=== PATIENT | female | born 1950 | race Caucasian/White ===

== ENCOUNTER 2018-04-27 07:41 | Outpatient (CLI) | payer MEDICARE, OTHER | END 2018-04-27 07:42 | disposition home or self-care (01) | LOC: BICMAMMO 07:41 | PROVIDERS: ATTEND Obstetrics & Gynecology | DX: Z12.31 Encounter for screening mammogram for malignant neoplasm of breast (principal) | CPT/HCPCS: 77063; 77067 ==

== ENCOUNTER 2018-07-13 05:53 | Day surgery (SDC) | payer MEDICARE, OTHER ==
[2018-07-12 10:24] VITALS: BMI 48.9
--- NOTE | 2018-07-13 08:14 | OP ---
DATE OF PROCEDURE: 07/13/2018 SURGEON: Dr. Sedrick Oscar PREOPERATIVE DIAGNOSES: Gastroesophageal reflux, history of adenomatous colon polyps. PROCEDURE: After informed consent was obtained, the patient placed in left lateral decubitus positio n. Anesthesia administered per the Anesthesia Department. Forward-viewing endoscope was inserted in to esophagus under direct visualization with ease and passed to the second portion of the duodenum wi th ease. Second portion of duodenum and duodenal bulb were normal. The pylorus, antrum, body, fundu s, and cardia were normal. Retroflexion in the stomach was normal. Esophagus was normal throughout. ASSESSMENT: Normal esophagogastroduodenoscopy. RECOMMENDATIONS: 1. Continue antireflux therapy. 2. Proceed with colonoscopy. PROCEDURE: After informed consent was obtained, the patient placed in left lateral decubitus positio n. Anesthesia administered per the Anesthesia Department. Forward-viewing endoscope was inserted in to the rectum after perianal inspection and rectal exam were normal. This passed to the cecum with e ase. The full cecal cap could not be visualized secondary to looping, but most of the cecal cap was visualized and the prep was excellent. The ascending, transverse, descending, sigmoid, and rectum we re normal. Retroflexion in rectum was normal. ASSESSMENT: Normal colonoscopy. RECOMMENDATIONS: Repeat colonoscopy in 5 years.
== END 2018-07-13 08:36 | disposition home or self-care (01) ==
LOC: SDC 05:53
PROVIDERS: ATTEND Internal Medicine Gastroenterology
PROC: 0DJ08ZZ Inspection of Upper Intestinal Tract, Via Natural or Artificial Opening Endoscopic (ICD-10-PCS; principal; 2018-07-13)
PROC: 0DJD8ZZ Inspection of Lower Intestinal Tract, Via Natural or Artificial Opening Endoscopic (ICD-10-PCS; 2018-07-13)
DX: Z12.11 Encounter for screening for malignant neoplasm of colon (principal); K21.9 Gastro-esophageal reflux disease without esophagitis; E66.9 Obesity, unspecified; Z68.42 Body mass index [BMI] 45.0-49.9, adult; Z86.010 Personal history of colon polyps; Z88.0 Allergy status to penicillin; Z88.1 Allergy status to other antibiotic agents; Z88.5 Allergy status to narcotic agent; Z79.1 Long term (current) use of non-steroidal anti-inflammatories (NSAID); Z79.82 Long term (current) use of aspirin; Z79.84 Long term (current) use of oral hypoglycemic drugs; Z79.899 Other long term (current) drug therapy
CPT/HCPCS: 43235; G0105

== ENCOUNTER 2019-02-18 09:10 | Outpatient (CLI) | payer MEDICARE, OTHER ==
--- NOTE | 2019-02-18 09:23 | RAD ---
FRadiograph chest 2 views: HISTORY: 68-year-old female with dyspnea FINDINGS: No pleural effusion, pneumothorax, consolidation, or pulmonary edema. Cardiac size at upper limits of normal. IMPRESSION: No acute pulmonary findings
== END 2019-02-18 09:11 | disposition home or self-care (01) ==
LOC: RAD 09:10
PROVIDERS: ATTEND Internal Medicine Critical Care Medicine
DX: R06.00 Dyspnea, unspecified (principal)
CPT/HCPCS: 71046

== ENCOUNTER 2019-04-29 07:39 | Outpatient (CLI) | payer MEDICARE, OTHER ==
--- NOTE | 2019-04-29 08:12 | MMO ---
Bilateral MAMMO Bilat Screen [facility]. CLINICAL HISTORY: Patient is 68 years old and is seen for screening. The patient has no family history of breast cancer. The patient has no personal history of cancer. The patient has a history of right Excisional Biopsy more than 10 years ago - benign. VIEWS: The views performed were: bilateral craniocaudal with tomosynthesis and bilateral mediolateral oblique with tomosynthesis. FILMS COMPARED: The present examination has been compared to prior imaging studies performed at [facility] on 12/10/2015, 02/01/2017 and 04/27/2018, and at [facility] on 12/01/2014. MAMMOGRAM FINDINGS: There are scattered fibroglandular densities. There are stable benign appearing calcifications seen in both breasts. There are no suspicious masses, suspicious calcifications, or new areas of architectural distortion. IMPRESSION: THERE IS NO MAMMOGRAPHIC EVIDENCE OF MALIGNANCY. A ROUTINE FOLLOW-UP MAMMOGRAM IN 1 YEAR IS RECOMMENDED. THE RESULTS OF THIS EXAM WERE SENT TO THE PATIENT. ACR BI-RADS Category 2 - Benign finding MAMMOGRAPHY NOTE: 1. A negative mammogram report should not delay a biopsy if a dominant of clinically suspicious mass is present. 2. Approximately 10% to 15% of breast cancers are not detected by mammography. 3. Adenosis and dense breasts may obscure an underlying neoplasm.
== END 2019-04-29 07:40 | disposition home or self-care (01) ==
LOC: BICMAMMO 07:39
PROVIDERS: ATTEND Obstetrics & Gynecology
DX: Z12.31 Encounter for screening mammogram for malignant neoplasm of breast (principal); Z91.89 Other specified personal risk factors, not elsewhere classified
CPT/HCPCS: 77063; 77067

== ENCOUNTER 2020-05-05 07:56 | Outpatient (CLI) | payer MEDICARE, OTHER ==
--- NOTE | 2020-05-05 08:31 | MMO ---
Bilateral MAMMO Bilat Screen [facility]. CLINICAL HISTORY: Patient is 69 years old and is seen for screening. The patient has no family history of breast cancer. The patient has no personal history of cancer. The patient has a history of right Excisional Biopsy more than 10 years ago - benign. VIEWS: The views performed were: bilateral mediolateral oblique with tomosynthesis; bilateral craniocaudal with tomosynthesis; left mediolateral oblique; and right craniocaudal. FILMS COMPARED: The present examination has been compared to prior imaging studies performed at [facility] on 12/10/2015, 02/01/2017, 04/27/2018 and 04/29/2019. This study has been interpreted with the assistance of computer-aided detection. MAMMOGRAM FINDINGS: There are scattered fibroglandular densities. There are benign appearing calcifications seen in both breasts. There are no suspicious masses, suspicious calcifications, or new areas of architectural distortion. IMPRESSION: THERE IS NO MAMMOGRAPHIC EVIDENCE OF MALIGNANCY. A ROUTINE FOLLOW-UP MAMMOGRAM IN 1 YEAR IS RECOMMENDED. THE RESULTS OF THIS EXAM WERE SENT TO THE PATIENT. ACR BI-RADS Category 2 - Benign finding MAMMOGRAPHY NOTE: 1. A negative mammogram report should not delay a biopsy if a dominant of clinically suspicious mass is present. 2. Approximately 10% to 15% of breast cancers are not detected by mammography. 3. Adenosis and dense breasts may obscure an underlying neoplasm. Reported by: SHAUNA TANNER MD Electonically Signed: [id number]
== END 2020-05-05 07:57 | disposition home or self-care (01) ==
LOC: BICMAMMO 07:56
PROVIDERS: ATTEND Family Medicine
DX: Z12.31 Encounter for screening mammogram for malignant neoplasm of breast (principal); Z91.89 Other specified personal risk factors, not elsewhere classified
CPT/HCPCS: 77063; 77067

== ENCOUNTER 2022-03-22 09:31 | Inpatient (IN) | payer MEDICARE, OTHER ==
[2022-03-22 10:17] LABS: INR-International Normal Ratio 1.2; Prothrombin Time 15.1 sec (12.0-14.7)
[2022-03-22 10:20] LABS: #Basophils 0.1 thou/uL (0.0-0.2); #Eosinphils 0.2 thou/uL (0.0-0.7); #Lymphocytes 2.1 thou/uL (1.20-3.40); #Monocytes 0.4 thou/uL (0.11-0.59); #Neutrophils 4.4 thou/uL (1.40-6.50); %Basophils 0.9 % (0.0-1.0); %Eosinophils 2.8 % (0.0-10.0); %Lymphocytes 29.6 % (21.0-51.0); %Monocytes 5.7 % (0.0-10.0); %Neutrophils 61.1 % (42.0-75.0); Hemoglobin 5.8 g/dL (12.0-16.0); Mean Corpuscular HGB CONC 31.7 g/dL (32.0-36.0); Mean Corpuscular Hemoglobin 32.2 pg (27.0-31.0); Mean Platelet Volume 7.2 fL (7.4-10.4); Platelet Count 243 thou/uL (130-400); White Blood Cell (WBC) Count 7.2 thou/uL (4.8-10.8)
[2022-03-22 10:33] LABS: ALT (SGPT) 16 U/L (8-55); AST (SGOT) 20 U/L (5-34); Albumin 3.8 g/dL (3.4-4.8); Alkaline Phosphatase 87 U/L (40-110); Anion Gap 15 mmol/L (10-20); BUN (Urea Nitrogen) 45 mg/dL (9.8-20.1); Bilirubin, Total 0.8 mg/dL (0.2-1.2); Calc. Creatinine Clearance 0 mL/min (70-130); Calcium 9.4 mg/dL (7.8-10.44); Carbon Dioxide 23 mmol/L (23-31); Chloride 104 mmol/L (98-107); Globulin 3.1 g/dL (2.4-3.5); Glucose 126 mg/dL (83-110); Lipase 64 U/L (8-78); Potassium 4.9 mmol/L (3.5-5.1); Protein, Total 6.9 g/dL (5.8-8.1); Sodium 137 mmol/L (136-145)
[2022-03-22 11:38] LABS: Polychromasia SLIGHT = 2-3 cells (100X) (0-2/hpf); Tear Drops SLIGHT = 2-5 cells (100X) (0-1/hpf)
[2022-03-22 11:39] LABS: Platelet Morphology Comment Appears Adequate
[2022-03-22] MEDS ORDERED: Acetaminophen 325 MG TAB PO PRN (11:51)
[2022-03-22] MEDS ORDERED: Bisacodyl 5 MG TAB PO PRN (11:51)
[2022-03-22] MEDS ORDERED: Senokot S 8.6-50 MG TAB PO PRN (11:51)
[2022-03-22] MEDS ORDERED: Morphine 2 MG/ML VIAL SLOW IVP PRN (11:55)
[2022-03-22] MEDS ORDERED: HYDROcodone/Acetaminophen 5/325 mg Tablet PO PRN (12:32)
[2022-03-22] MEDS ORDERED: Dextrose 50% Abboject 50 ML SYRINGE SLOW IVP PRN (12:35)
[2022-03-22] MEDS ORDERED: HumaLOG 300 UNITS/3 ML VIAL SC PRN (12:35)
[2022-03-22] MEDS ORDERED: Dextrose 5% in Water 1,000 ML IV PRN (12:35)
[2022-03-22 12:52] LABS: Reticulocyte Count 8.6 % (0.5-1.5)
[2022-03-22 13:13] LABS: Troponin I Less than 0.010 ng/mL (< 0.028)
[2022-03-22] MEDS ORDERED: Furosemide 40 MG/4 ML VIAL SLOW IVP SCH ×3 (15:00→23:59)
[2022-03-22 16:09] VITALS: BMI 53.2
[2022-03-22 17:07] LABS: Troponin I Less than 0.010 ng/mL (< 0.028)
[2022-03-22] MEDS: Rosuvastatin 20 MG TAB PO SCH (21:04)
[2022-03-22] MEDS: Pantoprazole 40 MG VIAL IVP SCH (21:05)
[2022-03-22 22:36] LABS: #Basophils 0.1 thou/uL (0.0-0.2); #Eosinphils 0.4 thou/uL (0.0-0.7); #Monocytes 1.1 thou/uL (0.11-0.59); #Neutrophils 4.2 thou/uL (1.40-6.50); %Basophils 0.7 % (0.0-1.0); %Eosinophils 4.3 % (0.0-10.0); %Lymphocytes 34.7 % (21.0-51.0); %Monocytes 12.3 % (0.0-10.0); %Neutrophils 47.9 % (42.0-75.0); Hemoglobin 6.4 g/dL (12.0-16.0); Mean Corpuscular Hemoglobin 31.7 pg (27.0-31.0); Mean Corpuscular Volume 99.1 fL (78.0-98.0); Mean Platelet Volume 6.7 fL (7.4-10.4); Platelet Count 245 thou/uL (130-400); RBC Distribution Width 15.6 % (11.5-14.5); Red Blood Cell (RBC) Count 2.01 mill/uL (4.20-5.40); White Blood Cell (WBC) Count 8.7 thou/uL (4.8-10.8)
[2022-03-23 00:50] LABS: SARS-CoV-2 PCR by NAA Not Detected (NotDetected)
[2022-03-23 05:01] LABS: #Basophils 0.1 thou/uL (0.0-0.2); #Eosinphils 0.3 thou/uL (0.0-0.7); #Lymphocytes 2.9 thou/uL (1.20-3.40); #Neutrophils 4.7 thou/uL (1.40-6.50); %Basophils 0.6 % (0.0-1.0); %Lymphocytes 32.4 % (21.0-51.0); %Monocytes 11.4 % (0.0-10.0); %Neutrophils 52.5 % (42.0-75.0); Hemoglobin 7.9 g/dL (12.0-16.0); Mean Corpuscular HGB CONC 32.4 g/dL (32.0-36.0); Mean Corpuscular Volume 95.9 fL (78.0-98.0); Mean Platelet Volume 6.5 fL (7.4-10.4); Platelet Count 268 thou/uL (130-400); Red Blood Cell (RBC) Count 2.53 mill/uL (4.20-5.40); White Blood Cell (WBC) Count 8.9 thou/uL (4.8-10.8)
[2022-03-23 05:31] LABS: ALT (SGPT) 15 U/L (8-55); AST (SGOT) 21 U/L (5-34); Albumin 4.2 g/dL (3.4-4.8); Alkaline Phosphatase 96 U/L (40-110); Anion Gap 17 mmol/L (10-20); BUN (Urea Nitrogen) 40 mg/dL (9.8-20.1); Bilirubin, Total 1.9 mg/dL (0.2-1.2); Calc. Creatinine Clearance 75 mL/min (70-130); Calcium 9.8 mg/dL (7.8-10.44); Carbon Dioxide 26 mmol/L (23-31); Chloride 104 mmol/L (98-107); Globulin 3.2 g/dL (2.4-3.5); Glucose 108 mg/dL (83-110); Magnesium 2.2 mg/dL (1.6-2.6); Potassium 4.9 mmol/L (3.5-5.1); Protein, Total 7.4 g/dL (5.8-8.1); Sodium 142 mmol/L (136-145)
[2022-03-23] MEDS ORDERED: Electrolyte Replacement Protocol 1 EACH FS PRN (08:45)
[2022-03-23 08:52] LABS: Reticulocyte Count 6.6 % (0.5-1.5)
[2022-03-23] MEDS: Folic Acid 1 MG TAB PO SCH (08:56)
[2022-03-23] MEDS: Cyanocobalamin (Vitamin B-12) 1,000 MCG TAB PO SCH (08:56)
[2022-03-23] MEDS: Pantoprazole 40 MG VIAL IVP SCH ×2 (08:57→20:58)
[2022-03-23] MEDS: Furosemide 40 MG/4 ML VIAL SLOW IVP SCH (08:57)
[2022-03-23] MEDS ORDERED: GoLYTELY 4,000 ml Bottle PO SCH (17:00)
[2022-03-23] MEDS ORDERED: Potassium Chloride 20 MEQ TAB PO SCH (17:30)
[2022-03-23] MEDS: Rosuvastatin 20 MG TAB PO SCH (20:58)
[2022-03-24 05:37] LABS: ALT (SGPT) 18 U/L (8-55); AST (SGOT) 27 U/L (5-34); Albumin 3.8 g/dL (3.4-4.8); Alkaline Phosphatase 88 U/L (40-110); Anion Gap 11 mmol/L (10-20); BUN (Urea Nitrogen) 32 mg/dL (9.8-20.1); Bilirubin, Total 1.7 mg/dL (0.2-1.2); Calc. Creatinine Clearance 89 mL/min (70-130); Calcium 9.7 mg/dL (7.8-10.44); Carbon Dioxide 32 mmol/L (23-31); Chloride 104 mmol/L (98-107); Globulin 3.2 g/dL (2.4-3.5); Glucose 108 mg/dL (83-110); Magnesium 1.8 mg/dL (1.6-2.6); Phosphorus 3.6 mg/dL (2.3-4.7); Potassium 5.1 mmol/L (3.5-5.1); Sodium 142 mmol/L (136-145)
[2022-03-24 05:55] LABS: #Eosinphils 0.2 thou/uL (0.0-0.7); #Lymphocytes 2.5 thou/uL (1.20-3.40); #Monocytes 0.9 thou/uL (0.11-0.59); #Neutrophils 4.3 thou/uL (1.40-6.50); %Basophils 0.6 % (0.0-1.0); %Eosinophils 2.4 % (0.0-10.0); %Lymphocytes 31.2 % (21.0-51.0); %Monocytes 11.2 % (0.0-10.0); %Neutrophils 54.6 % (42.0-75.0); Hemoglobin 7.8 g/dL (12.0-16.0); Mean Corpuscular HGB CONC 34.5 g/dL (32.0-36.0); Mean Corpuscular Hemoglobin 33.4 pg (27.0-31.0); Mean Corpuscular Volume 96.9 fL (78.0-98.0); Mean Platelet Volume 6.8 fL (7.4-10.4); Platelet Count 255 thou/uL (130-400); RBC Distribution Width 16.5 % (11.5-14.5); Red Blood Cell (RBC) Count 2.33 mill/uL (4.20-5.40); White Blood Cell (WBC) Count 7.9 thou/uL (4.8-10.8)
[2022-03-24] MEDS ORDERED: Magnesium 2 GM/50 ML(in water) 2 GM in Premix Bag 1 BAG IVPB SCH (06:15)
[2022-03-24] MEDS ORDERED: Ketamine 50 MG/ML (10ML VIAL) ONE (09:41)
[2022-03-24] MEDS ORDERED: PROPOFOL 200 MG/20 ML VIAL ONE (09:55)
[2022-03-24] MEDS: Cyanocobalamin (Vitamin B-12) 1,000 MCG TAB PO SCH (10:41)
[2022-03-24] MEDS: Pantoprazole 40 MG VIAL IVP SCH (10:42)
[2022-03-24] MEDS: Furosemide 40 MG/4 ML VIAL SLOW IVP SCH (10:42)
[2022-03-24] MEDS: Folic Acid 1 MG TAB PO SCH (10:42)
[2022-03-24] MEDS ORDERED: Iron, Sodium Ferric Gluconate 250 MG in Sodium Chloride 0.9% 250 ML 250 ML IVPB SCH (14:30)
[2022-03-24] MEDS ORDERED: Furosemide 40 MG/4 ML VIAL SLOW IVP SCH (17:15)
[2022-03-24] MEDS: Rosuvastatin 20 MG TAB PO SCH (20:59)
[2022-03-24] MEDS: Nystatin Powder 15 GM BOT TOP SCH (21:49)
[2022-03-25 04:33] LABS: #Basophils 0.1 thou/uL (0.0-0.2); #Eosinphils 0.2 thou/uL (0.0-0.7); #Lymphocytes 2.8 thou/uL (1.20-3.40); #Monocytes 0.8 thou/uL (0.11-0.59); #Neutrophils 3.8 thou/uL (1.40-6.50); %Basophils 0.7 % (0.0-1.0); %Eosinophils 2.2 % (0.0-10.0); %Lymphocytes 36.9 % (21.0-51.0); %Monocytes 10.2 % (0.0-10.0); Anion Gap 17 mmol/L (10-20); BUN (Urea Nitrogen) 23 mg/dL (9.8-20.1); Calc. Creatinine Clearance 96 mL/min (70-130); Calcium 9.4 mg/dL (7.8-10.44); Carbon Dioxide 24 mmol/L (23-31); Chloride 104 mmol/L (98-107); Glucose 97 mg/dL (83-110); Hemoglobin 8.6 g/dL (12.0-16.0); Magnesium 1.8 mg/dL (1.6-2.6); Mean Corpuscular HGB CONC 31.8 g/dL (32.0-36.0); Mean Corpuscular Hemoglobin 30.4 pg (27.0-31.0); Mean Corpuscular Volume 95.5 fL (78.0-98.0); Mean Platelet Volume 8.1 fL (7.4-10.4); Platelet Count 203 thou/uL (130-400); Potassium 4.7 mmol/L (3.5-5.1); RBC Distribution Width 16.4 % (11.5-14.5); Red Blood Cell (RBC) Count 2.83 mill/uL (4.20-5.40); Sodium 140 mmol/L (136-145); White Blood Cell (WBC) Count 7.7 thou/uL (4.8-10.8)
[2022-03-25] MEDS ORDERED: Magnesium 2 GM/50 ML(in water) 2 GM in Premix Bag 1 BAG IVPB SCH (06:30)
[2022-03-25] MEDS: Nystatin Powder 15 GM BOT TOP SCH (08:33)
[2022-03-25] MEDS: Folic Acid 1 MG TAB PO SCH (08:33)
[2022-03-25] MEDS: Cyanocobalamin (Vitamin B-12) 1,000 MCG TAB PO SCH (08:33)
[2022-03-25] MEDS ORDERED: Iron, Sodium Ferric Gluconate 250 MG in Sodium Chloride 0.9% 250 ML 250 ML IVPB SCH (09:00)
[2022-03-25] MEDS: Furosemide 40 MG/4 ML VIAL SLOW IVP SCH (11:02)
[2022-03-25] MEDS ORDERED: Furosemide 40 MG/4 ML VIAL SLOW IVP SCH (13:00)
[2022-03-25] MEDS ORDERED: Potassium Chloride 20 MEQ TAB PO SCH (13:00)
[2022-03-25 17:23] VITALS: BP 150/66; TEMP 96.9
== END 2022-03-25 17:03 | disposition home or self-care (01) | DRG 811 ==
LOC: ERS 09:31 → SUATTDRO 09:31 → 2NO 15:19
PROVIDERS: ADMIT Internal Medicine; ATTEND Internal Medicine
PROC: 30233N1 Transfusion of Nonautologous Red Blood Cells into Peripheral Vein, Percutaneous Approach (ICD-10-PCS; principal; 2022-03-22)
PROC: 0DJ08ZZ Inspection of Upper Intestinal Tract, Via Natural or Artificial Opening Endoscopic (ICD-10-PCS; 2022-03-24)
PROC: 0DBL8ZZ Excision of Transverse Colon, Via Natural or Artificial Opening Endoscopic (ICD-10-PCS; 2022-03-24)
DX: D50.9 Iron deficiency anemia, unspecified (principal); J96.01 Acute respiratory failure with hypoxia; I50.33 Acute on chronic diastolic (congestive) heart failure; I13.0 Hypertensive heart and chronic kidney disease with heart failure and stage 1 through stage 4 chronic kidney disease, or unspecified chronic kidney disease; Z68.43 Body mass index [BMI] 50.0-59.9, adult; Z20.822 Contact with and (suspected) exposure to COVID-19; M19.90 Unspecified osteoarthritis, unspecified site; K21.9 Gastro-esophageal reflux disease without esophagitis; E11.22 Type 2 diabetes mellitus with diabetic chronic kidney disease; E87.70 Fluid overload, unspecified; D50.0 Iron deficiency anemia secondary to blood loss (chronic); E66.01 Morbid (severe) obesity due to excess calories; E78.00 Pure hypercholesterolemia, unspecified; K31.819 Angiodysplasia of stomach and duodenum without bleeding; E83.42 Hypomagnesemia; E87.6 Hypokalemia; N18.31 Chronic kidney disease, stage 3a; Z88.0 Allergy status to penicillin; Z88.5 Allergy status to narcotic agent; Z88.1 Allergy status to other antibiotic agents; Z88.8 Allergy status to other drugs, medicaments and biological substances; Z98.51 Tubal ligation status; Z87.891 Personal history of nicotine dependence
CPT/HCPCS: 36415; 36416; 36430; 71045; 71046; 80048; 80053; 82274; 82607; 82728; 82746; 83540; 83690; 83735; 83880; 84100; 84484; 85025; 85046; 85610; 85730; 86850; 86900; 86901; 88305; 93005; 93306; 93970; 94760; C9113; J1940; J2704; J2916; J3475; J7050; P9016; U0003; U0005

== ENCOUNTER 2022-05-19 11:33 | Observation (INO) | payer MEDICARE, OTHER ==
[2022-05-19 12:40] LABS: #Basophils 0.1 thou/uL (0.0-0.2); #Eosinphils 0.2 thou/uL (0.0-0.7); #Lymphocytes 2.2 thou/uL (1.20-3.40); #Monocytes 0.8 thou/uL (0.11-0.59); #Neutrophils 3.5 thou/uL (1.40-6.50); %Basophils 0.8 % (0.0-1.0); %Lymphocytes 32.2 % (21.0-51.0); %Monocytes 12.1 % (0.0-10.0); Hemoglobin 7.6 g/dL (12.0-16.0); Mean Corpuscular HGB CONC 32.2 g/dL (32.0-36.0); Mean Corpuscular Hemoglobin 33.5 pg (27.0-31.0); Mean Platelet Volume 6.7 fL (7.4-10.4); Platelet Count 248 thou/uL (130-400); RBC Distribution Width 16.4 % (11.5-14.5); Red Blood Cell (RBC) Count 2.27 mill/uL (4.20-5.40); White Blood Cell (WBC) Count 6.8 thou/uL (4.8-10.8)
[2022-05-19 13:02] LABS: ALT (SGPT) 25 U/L (8-55); AST (SGOT) 38 U/L (5-34); Albumin 3.7 g/dL (3.4-4.8); Alkaline Phosphatase 139 U/L (40-110); Anion Gap 16 mmol/L (10-20); BUN (Urea Nitrogen) 34 mg/dL (9.8-20.1); Bilirubin, Total 0.7 mg/dL (0.2-1.2); Calc. Creatinine Clearance 0 mL/min (70-130); Calcium 9.4 mg/dL (7.8-10.44); Carbon Dioxide 23 mmol/L (23-31); Chloride 107 mmol/L (98-107); Estimated GFR 40; Globulin 3.3 g/dL (2.4-3.5); Glucose 130 mg/dL (83-110); Potassium 6.1 mmol/L (3.5-5.1); Sodium 140 mmol/L (136-145)
[2022-05-19] MEDS ORDERED: Sodium Bicarb 50 MEQ/50 ML Abboject 8.4% SYRINGE ONE (13:35)
[2022-05-19] MEDS ORDERED: CALCIUM GLUC 1GM/NS 50ML BAG ONE (13:35)
[2022-05-19] MEDS ORDERED: Furosemide 40 MG/4 ML VIAL ONE (13:35)
[2022-05-19] MEDS ORDERED: Acetaminophen 500 MG TAB ONE (15:07)
[2022-05-19] MEDS ORDERED: HumaLOG 300 UNITS/3 ML VIAL SC PRN ×2 (17:01)
[2022-05-19] MEDS ORDERED: Dextrose 50% Abboject 50 ML SYRINGE SLOW IVP PRN (17:01)
[2022-05-19] MEDS ORDERED: Dextrose 5% in Water 1,000 ML IV PRN (17:01)
[2022-05-19 17:32] LABS: Reticulocyte Count 8.4 % (0.5-1.5)
[2022-05-19 17:52] LABS: Iron 60 ug/dL (50-170); Iron Binding Capacity, Total 458 mcg/dL (265-497)
[2022-05-19 18:18] LABS: Ferritin 25.51 ng/mL (10-291)
[2022-05-19 18:55] VITALS: BMI 50.6
[2022-05-19 18:55] LABS: SARS-CoV-2 NAA Rapid Test Not Detected (NotDetected)
[2022-05-19 19:48] LABS: Hemoglobin 8.4 g/dL (12.0-16.0)
[2022-05-19 20:13] LABS: Anion Gap 19 mmol/L (10-20); BUN (Urea Nitrogen) 31 mg/dL (9.8-20.1); Calc. Creatinine Clearance 73 mL/min (70-130); Calcium 10.7 mg/dL (7.8-10.44); Carbon Dioxide 22 mmol/L (23-31); Chloride 105 mmol/L (98-107); Estimated GFR 37; Glucose 162 mg/dL (83-110); Potassium 5.2 mmol/L (3.5-5.1)
[2022-05-19 21:41] LABS: Sodium 141 mmol/L (136-145)
[2022-05-19] MEDS: Acetaminophen 325 MG TAB PO PRN (21:43)
[2022-05-20] MEDS ORDERED: Fluticasone Propionate Nasal Spray 16 gm Bottle NASAL PRN (00:04)
[2022-05-20] MEDS ORDERED: hydrALAZINE 20 MG/ML VIAL SLOW IVP PRN (00:10)
[2022-05-20] MEDS ORDERED: Mag-Al Plus 1200 MG/1200 MG/120 MG/30 ML UDCUP PO SCH (02:55)
[2022-05-20 03:33] LABS: #Basophils 0.1 thou/uL (0.0-0.2); #Eosinphils 0.1 thou/uL (0.0-0.7); #Lymphocytes 2.5 thou/uL (1.20-3.40); #Neutrophils 4.1 thou/uL (1.40-6.50); %Basophils 0.8 % (0.0-1.0); %Eosinophils 1.9 % (0.0-10.0); %Lymphocytes 31.9 % (21.0-51.0); %Neutrophils 52.5 % (42.0-75.0); Hemoglobin 8.4 g/dL (12.0-16.0); Mean Corpuscular Hemoglobin 34.2 pg (27.0-31.0); Mean Platelet Volume 6.5 fL (7.4-10.4); Platelet Count 249 thou/uL (130-400); RBC Distribution Width 16.1 % (11.5-14.5); Red Blood Cell (RBC) Count 2.45 mill/uL (4.20-5.40); White Blood Cell (WBC) Count 7.8 thou/uL (4.8-10.8)
[2022-05-20 03:53] LABS: Anion Gap 17 mmol/L (10-20); BUN (Urea Nitrogen) 30 mg/dL (9.8-20.1); Calc. Creatinine Clearance 77 mL/min (70-130); Calcium 10.5 mg/dL (7.8-10.44); Carbon Dioxide 23 mmol/L (23-31); Chloride 105 mmol/L (98-107); Estimated GFR 40; Glucose 116 mg/dL (83-110); Potassium 4.9 mmol/L (3.5-5.1); Sodium 140 mmol/L (136-145)
[2022-05-20 03:59] LABS: Troponin I 0.015 ng/mL (< 0.028)
[2022-05-20] MEDS ORDERED: Ferrous Sulfate 325 MG TAB PO SCH (08:00)
[2022-05-20] MEDS ORDERED: Ezetimibe 10 MG TAB PO SCH (09:00)
[2022-05-20] MEDS ORDERED: Loratadine 10 MG TAB PO SCH (09:00)
[2022-05-20] MEDS ORDERED: Brimonidine Tartrate 0.2% Ophth Soln 5 ml Bottle EA EYE SCH (09:00)
[2022-05-20] MEDS ORDERED: Losartan 25 MG TAB PO SCH (09:00)
[2022-05-20] MEDS: Acetaminophen 325 MG TAB PO PRN (09:56)
[2022-05-20] MEDS ORDERED: Ondansetron PF 4 MG/2 ML Vial IVP PRN (10:59)
[2022-05-20 11:48] VITALS: BP 134/62; TEMP 98.2
[2022-05-20] MEDS ORDERED: traMADol HCl 50 MG TAB PO SCH (14:15)
[2022-05-20] MEDS ORDERED: Lidocaine 5% Patch TD SCH (14:15)
[2022-05-20] MEDS ORDERED: Gabapentin 300 MG CAP PO SCH (14:15)
[2022-05-20] MEDS ORDERED: Rosuvastatin 20 MG TAB PO SCH (21:00)
[2022-05-21] MEDS ORDERED: Transdermal Patch Removal TOP SCH (02:15)
== END 2022-05-20 16:45 | disposition home or self-care (01) ==
LOC: ERS 11:33 → ERHOLD 15:17 → 2SW 18:29
PROVIDERS: ADMIT Family Medicine; ATTEND Family Medicine
DX: I13.0 Hypertensive heart and chronic kidney disease with heart failure and stage 1 through stage 4 chronic kidney disease, or unspecified chronic kidney disease (principal); E11.22 Type 2 diabetes mellitus with diabetic chronic kidney disease; N18.30 Chronic kidney disease, stage 3 unspecified; I50.30 Unspecified diastolic (congestive) heart failure; D63.1 Anemia in chronic kidney disease; E87.5 Hyperkalemia; K21.9 Gastro-esophageal reflux disease without esophagitis; R60.0 Localized edema; M54.30 Sciatica, unspecified side; E66.01 Morbid (severe) obesity due to excess calories; Z68.43 Body mass index [BMI] 50.0-59.9, adult; Z79.82 Long term (current) use of aspirin; Z79.84 Long term (current) use of oral hypoglycemic drugs; Z79.899 Other long term (current) drug therapy; Z88.0 Allergy status to penicillin; Z88.1 Allergy status to other antibiotic agents; Z88.5 Allergy status to narcotic agent; Z20.822 Contact with and (suspected) exposure to COVID-19
CPT/HCPCS: 71045; 80048 ×2; 80053; 82607; 82728; 82746; 82962 ×2; 83540; 83550; 83880; 84484 ×2; 85014; 85018; 85025 ×2; 85046; 93005 ×2; J0610; U0002; 36415; 36416; 82274; 93010; 96374; G0378; J1940; J2405

== ENCOUNTER 2022-09-27 10:59 | Inpatient (IN) | payer MEDICARE, OTHER ==
[~2022-09-27 10:59] MED LIST: Iopamidol-370 76% 500 ML 1 ML ONE
[2022-09-27 12:24] LABS: #Lymphocytes 1.6 thou/uL (1.20-3.40); #Monocytes 1.4 thou/uL (0.11-0.59); %Basophils 0.2 % (0.0-1.0); %Eosinophils 0.3 % (0.0-10.0); %Monocytes 10.9 % (0.0-10.0); %Neutrophils 76.6 % (42.0-75.0); Hemoglobin 11.7 g/dL (12.0-16.0); Mean Corpuscular HGB CONC 32.5 g/dL (32.0-36.0); Mean Corpuscular Hemoglobin 31.3 pg (27.0-31.0); Mean Corpuscular Volume 96.5 fl (78.0-98.0); Mean Platelet Volume 7.3 fL (7.4-10.4); Platelet Count 190 10x3/uL (130-400); RBC Distribution Width 15.8 % (11.5-14.5); Red Blood Cell (RBC) Count 3.73 mill/uL (4.20-5.40)
[2022-09-27 12:48] LABS: ALT (SGPT) 20 U/L (8-55); AST (SGOT) 17 U/L (5-34); Albumin 3.6 g/dL (3.4-4.8); Alkaline Phosphatase 169 U/L (40-110); Anion Gap 15 mmol/L (10-20); BUN (Urea Nitrogen) 31 mg/dL (9.8-20.1); Bilirubin, Total 1.5 mg/dL (0.2-1.2); Calc. Creatinine Clearance 0 mL/min (70-130); Calcium 9.2 mg/dL (7.8-10.44); Carbon Dioxide 22 mmol/L (23-31); Chloride 97 mmol/L (98-107); Estimated GFR 35; Glucose 157 mg/dL (83-110); Lipase 16 U/L (8-78); Potassium 4.3 mmol/L (3.5-5.1); Protein, Total 7.6 g/dL (5.8-8.1); Sodium 130 mmol/L (136-145)
[2022-09-27 13:10] LABS: SARS-CoV-2 NAA Rapid Test Not Detected (NotDetected)
[2022-09-27] MEDS ORDERED: Furosemide 40 MG/4 ML VIAL ONE ×2 (14:31→15:02)
[2022-09-27] MEDS ORDERED: Morphine 4 MG/ML VIAL ONE (15:47)
[2022-09-27] MEDS ORDERED: Senokot S 8.6-50 MG TAB PO PRN (17:00)
[2022-09-27] MEDS ORDERED: Dextrose 50% Abboject 50 ML SYRINGE SLOW IVP PRN (17:03)
[2022-09-27] MEDS ORDERED: Dextrose 5% in Water 1,000 ML IV PRN (17:03)
[2022-09-27] MEDS ORDERED: Brimonidine Tartrate 0.2% Ophth Soln 5 ml Bottle EA EYE SCH (17:30)
[2022-09-27 19:33] VITALS: BMI 51.2
[2022-09-27] MEDS: Dextrose 5 %-0.45 % NaCl 1,000 ML IV SCH (20:13)
[2022-09-27 21:08] LABS: #Basophils 0.2 thou/uL (0.0-0.2); #Lymphocytes 1.2 thou/uL (1.20-3.40); #Neutrophils 8.7 thou/uL (1.40-6.50); %Basophils 1.4 % (0.0-1.0); %Eosinophils 0.4 % (0.0-10.0); %Lymphocytes 10.7 % (21.0-51.0); %Monocytes 9.3 % (0.0-10.0); %Neutrophils 78.2 % (42.0-75.0); Hemoglobin 11.3 g/dL (12.0-16.0); Mean Corpuscular HGB CONC 32.6 g/dL (32.0-36.0); Mean Corpuscular Hemoglobin 31.2 pg (27.0-31.0); Mean Corpuscular Volume 95.7 fl (78.0-98.0); Mean Platelet Volume 7.4 fL (7.4-10.4); Platelet Count 180 10x3/uL (130-400); RBC Distribution Width 15.7 % (11.5-14.5); Red Blood Cell (RBC) Count 3.62 mill/uL (4.20-5.40); White Blood Cell (WBC) Count 11.2 10x3/uL (4.8-10.8)
[2022-09-27 21:15] LABS: Lactic Acid 1.4 mmol/L (0.5-2.2)
[2022-09-27 21:19] LABS: Magnesium 1.4 mg/dL (1.6-2.6)
[2022-09-27] MEDS: metroNIDAZOLE 500 MG in Premix Bag 1 BAG IVPB SCH (22:05)
[2022-09-27] MEDS: Heparin 5,000 UNITS/ML VIAL SC SCH (22:05)
[2022-09-27] MEDS: HYDROcodone/Acetaminophen 5/325 mg Tablet PO PRN (22:07)
[2022-09-28] MEDS: HYDROcodone/Acetaminophen 5/325 mg Tablet PO PRN ×3 (03:10→11:57)
[2022-09-28] MEDS: metroNIDAZOLE 500 MG in Premix Bag 1 BAG IVPB SCH (05:40)
[2022-09-28 06:59] LABS: #Eosinphils 0.1 thou/uL (0.0-0.7); #Lymphocytes 1.6 thou/uL (1.20-3.40); #Monocytes 1.3 thou/uL (0.11-0.59); #Neutrophils 8.7 thou/uL (1.40-6.50); %Basophils 0.1 % (0.0-1.0); %Eosinophils 0.6 % (0.0-10.0); %Lymphocytes 13.3 % (21.0-51.0); %Monocytes 11.4 % (0.0-10.0); %Neutrophils 74.6 % (42.0-75.0); Hemoglobin 10.5 g/dL (12.0-16.0); Mean Corpuscular Hemoglobin 30.6 pg (27.0-31.0); Mean Corpuscular Volume 95.5 fl (78.0-98.0); Mean Platelet Volume 7.7 fL (7.4-10.4); Platelet Count 178 10x3/uL (130-400); RBC Distribution Width 15.8 % (11.5-14.5); Red Blood Cell (RBC) Count 3.43 mill/uL (4.20-5.40); White Blood Cell (WBC) Count 11.6 10x3/uL (4.8-10.8)
[2022-09-28 07:21] LABS: ALT (SGPT) 16 U/L (8-55); AST (SGOT) 13 U/L (5-34); Albumin 3.1 g/dL (3.4-4.8); Alkaline Phosphatase 142 U/L (40-110); Anion Gap 12 mmol/L (10-20); BUN (Urea Nitrogen) 27 mg/dL (9.8-20.1); Bilirubin, Total 1.4 mg/dL (0.2-1.2); Calc. Creatinine Clearance 92 mL/min (70-130); Calcium 8.9 mg/dL (7.8-10.44); Carbon Dioxide 27 mmol/L (23-31); Chloride 98 mmol/L (98-107); Estimated GFR 50; Globulin 3.6 g/dL (2.4-3.5); Glucose 92 mg/dL (83-110); Potassium 3.9 mmol/L (3.5-5.1); Protein, Total 6.7 g/dL (5.8-8.1); Sodium 133 mmol/L (136-145)
[2022-09-28] MEDS ORDERED: Furosemide 40 MG/4 ML VIAL SLOW IVP SCH (09:00)
[2022-09-28] MEDS: Dextrose 5 %-0.45 % NaCl 1,000 ML IV SCH (09:05)
[2022-09-28] MEDS: Cholecalciferol 1,000 UNITS (25 MCG) TAB PO SCH ×2 (09:06→11:57)
[2022-09-28] MEDS: Aspirin Chewable 81 MG TAB PO SCH (09:06)
[2022-09-28] MEDS: Ezetimibe 10 MG TAB PO SCH ×2 (09:06→11:57)
[2022-09-28] MEDS: Cyanocobalamin (Vitamin B-12) 1,000 MCG TAB PO SCH ×2 (09:06→11:57)
[2022-09-28] MEDS: Loratadine 10 MG TAB PO SCH ×2 (09:07→11:56)
[2022-09-28] MEDS: Magnesium Oxide 400 MG TAB PO SCH ×2 (09:07→11:57)
[2022-09-28] MEDS: Ferrous Sulfate 325 MG TAB PO SCH ×2 (09:07→11:59)
[2022-09-28] MEDS: Lisinopril 2.5 MG TAB PO SCH ×2 (09:07→12:00)
[2022-09-28] MEDS: Heparin 5,000 UNITS/ML VIAL SC SCH ×3 (09:07→21:04)
[2022-09-28] MEDS: NIFEdipine XL 60 MG TAB PO SCH ×2 (09:08→11:56)
[2022-09-28] MEDS ORDERED: Fluticasone Propionate Nasal Spray 16 gm Bottle NASAL PRN (09:23)
[2022-09-28] MEDS: Brimonidine Tartrate 0.2% Ophth Soln 5 ml Bottle EA EYE SCH ×2 (10:02→21:03)
[2022-09-28] MEDS ORDERED: Morphine 4 MG/ML VIAL SLOW IVP PRN ×2 (11:26→16:45)
[2022-09-28 12:36] LABS: INR-International Normal Ratio 1.2; Prothrombin Time 15.4 sec (12.0-14.7)
[2022-09-28 12:37] LABS: PTT 38.7 sec (22.9-36.1)
[2022-09-28] MEDS ORDERED: Bupivacaine/Epinephrine 0.25% 30 ML VIAL ONE (12:54)
[2022-09-28] MEDS ORDERED: fentaNYL PF 100 MCG/2 ML SYRINGE ONE (13:16)
[2022-09-28] MEDS ORDERED: Dexamethasone 20 MG/5 ML VIAL ONE (14:15)
[2022-09-28] MEDS ORDERED: Rocuronium Bromide 10 MG/ML (10ML VIAL) ONE (14:15)
[2022-09-28] MEDS ORDERED: ePHEDrine 50 MG/ML VIAL ONE (14:15)
[2022-09-28] MEDS ORDERED: PROPOFOL 200 MG/20 ML VIAL ONE (14:15)
[2022-09-28] MEDS ORDERED: Vecuronium 10 MG VIAL ONE (14:15)
[2022-09-28] MEDS ORDERED: cefOXitin 2 GM VIAL ONE (14:58)
[2022-09-28] MEDS ORDERED: Ondansetron HCl/PF 4 MG/2 ML Vial IVP PRN (15:54)
[2022-09-28] MEDS ORDERED: Ketamine 50 MG/ML (10ML VIAL) ONE (16:12)
[2022-09-28] MEDS ORDERED: Ventilator Sedation Protocol 1 EACH FS SCH (16:30)
[2022-09-28] MEDS ORDERED: Midazolam HCl 2 mg/2 ml Vial SLOW IVP PRN (16:31)
[2022-09-28] MEDS ORDERED: Electrolyte Replacement Protocol 1 EACH FS SCH (16:38)
[2022-09-28 16:40] LABS: Actual Bicarbonate (HCO3a) 26.2 mEq/L (22-28); Base Excess (BEa) 0.8 mEq/L (-2.0 to +3.0); CO2 Tension 44.9 mmHg (35.0-45.0); Calcium, Ionized (arterial) 1.12 mmol/L (1.12-1.30); Carboxyhemoglobin (COHb) 0.6 gm% (0.0-3.0); Hemoglobin (Hb) 12.3 g/dL (12.0-16.0); O2 Tension (PaO2), arterial 86.4 mmHg (> 70.0); Potassium - ABG Lab 3.77 mmol/L (3.70-5.30); pH, Arterial 7.38 (7.35-7.45)
[2022-09-28] MEDS ORDERED: DISCONTINUE PREVIOUS NARCOTIC PAIN MEDICATIONS AND BENZODIAZEPINES FS SCH (16:45)
[2022-09-28] MEDS ORDERED: Propofol 1,000 MG/100 ML VIAL IV PRN (16:45)
[2022-09-28] MEDS ORDERED: Propofol BOLUS 1,000 MG/100 ML VIAL IV PRN (16:45)
[2022-09-28] MEDS ORDERED: Fentanyl CADD 100 ML IV SCH (16:45)
[2022-09-28] MEDS ORDERED: Fentanyl BOLUS 250 ML IVPB PRN (16:45)
[2022-09-28] MEDS: Budesonide 0.5 MG/2 ML NEB NEB SCH (18:13)
[2022-09-28] MEDS: Lactated Ringer's 1,000 ML IV SCH (20:11)
[2022-09-28] MEDS: cefOXitin 2 GM in Sodium Chloride 0.9% 100 ML IVPB SCH (21:03)
[2022-09-28] MEDS: Rosuvastatin 20 MG TAB PO SCH (21:05)
[2022-09-28] MEDS ORDERED: Magnesium Sulfate In Water 4 GM in Premix Bag 1 BAG IVPB SCH (23:30)
[2022-09-29] MEDS: Lactated Ringer's 1,000 ML IV SCH ×2 (01:55→15:56)
[2022-09-29] MEDS: cefOXitin 2 GM in Sodium Chloride 0.9% 100 ML IVPB SCH ×4 (02:47→21:56)
[2022-09-29 04:14] LABS: #Lymphocytes 0.9 thou/uL (1.20-3.40); #Monocytes 0.9 thou/uL (0.11-0.59); #Neutrophils 9.3 thou/uL (1.40-6.50); %Basophils 0.3 % (0.0-1.0); %Eosinophils 0.3 % (0.0-10.0); %Lymphocytes 7.9 % (21.0-51.0); %Neutrophils 83.4 % (42.0-75.0); Hemoglobin 11.3 g/dL (12.0-16.0); Mean Corpuscular HGB CONC 33.3 g/dL (32.0-36.0); Mean Corpuscular Hemoglobin 31.4 pg (27.0-31.0); Mean Corpuscular Volume 94.4 fl (78.0-98.0); Mean Platelet Volume 8.1 fL (7.4-10.4); Platelet Count 210 10x3/uL (130-400); RBC Distribution Width 15.4 % (11.5-14.5); Red Blood Cell (RBC) Count 3.61 mill/uL (4.20-5.40); White Blood Cell (WBC) Count 11.1 10x3/uL (4.8-10.8)
[2022-09-29 04:41] LABS: ALT (SGPT) 11 U/L (8-55); AST (SGOT) 11 U/L (5-34); Albumin 2.9 g/dL (3.4-4.8); Alkaline Phosphatase 149 U/L (40-110); Anion Gap 15 mmol/L (10-20); BUN (Urea Nitrogen) 22 mg/dL (9.8-20.1); Bilirubin, Total 1.4 mg/dL (0.2-1.2); Calc. Creatinine Clearance 92 mL/min (70-130); Carbon Dioxide 26 mmol/L (23-31); Chloride 97 mmol/L (98-107); Estimated GFR 49; Glucose 197 mg/dL (83-110); Potassium 3.7 mmol/L (3.5-5.1); Protein, Total 6.9 g/dL (5.8-8.1); Sodium 134 mmol/L (136-145)
[2022-09-29] MEDS: HumaLOG 300 UNITS/3 ML VIAL SC PRN ×2 (05:49→12:35)
[2022-09-29 07:29] LABS: Magnesium 2.3 mg/dL (1.6-2.6)
[2022-09-29 07:35] LABS: ALV-art Gradient 285.275 mmHg (0-20); Puncture Site Arterial Line
[2022-09-29] MEDS: Budesonide 0.5 MG/2 ML NEB NEB SCH ×2 (08:06→19:18)
[2022-09-29] MEDS: Brimonidine Tartrate 0.2% Ophth Soln 5 ml Bottle EA EYE SCH ×2 (08:45→21:57)
[2022-09-29] MEDS: Ezetimibe 10 MG TAB PO SCH (08:46)
[2022-09-29] MEDS: Cyanocobalamin (Vitamin B-12) 1,000 MCG TAB PO SCH (08:46)
[2022-09-29] MEDS: Ferrous Sulfate 325 MG TAB PO SCH (08:46)
[2022-09-29] MEDS: Lisinopril 2.5 MG TAB PO SCH (08:46)
[2022-09-29] MEDS: Magnesium Oxide 400 MG TAB PO SCH (08:47)
[2022-09-29] MEDS: Cholecalciferol 1,000 UNITS (25 MCG) TAB PO SCH (08:48)
[2022-09-29] MEDS: Amlodipine 10 MG TAB PER TUBE SCH (08:48)
[2022-09-29] MEDS: Pantoprazole 40 MG VIAL IVP SCH (08:52)
[2022-09-29] MEDS: Loratadine 10 MG TAB PO SCH (08:55)
[2022-09-29 09:07] LABS: Actual Bicarbonate (HCO3a) 26.3 mEq/L (22-28); Base Excess (BEa) 2.5 mEq/L (-2.0 to +3.0); CO2 Tension 37.8 mmHg (35.0-45.0); Calcium, Ionized (arterial) 1.15 mmol/L (1.12-1.30); Carboxyhemoglobin (COHb) 0.3 gm% (0.0-3.0); Hemoglobin (Hb) 11.7 g/dL (12.0-16.0); O2 Tension (PaO2), arterial 89.2 mmHg (> 70.0); Potassium - ABG Lab 3.28 mmol/L (3.70-5.30); pH, Arterial 7.46 (7.35-7.45)
[2022-09-29 09:09] LABS: Puncture Site Arterial Line
[2022-09-29] MEDS: Heparin 5,000 UNITS/ML VIAL SC SCH ×3 (09:50→21:57)
[2022-09-29] MEDS: Aspirin Chewable 81 MG TAB PO SCH (09:51)
[2022-09-29] MEDS: metroNIDAZOLE 500 MG in Premix Bag 1 BAG IVPB SCH (11:24)
[2022-09-29] MEDS: Acetaminophen 325 MG TAB PO PRN (22:00)
[2022-09-29] MEDS: Rosuvastatin 20 MG TAB PO SCH (22:02)
[2022-09-30] MEDS: cefOXitin 2 GM in Sodium Chloride 0.9% 100 ML IVPB SCH ×4 (03:40→20:47)
[2022-09-30 05:40] LABS: #Eosinphils 0.1 thou/uL (0.0-0.7); #Lymphocytes 2.1 thou/uL (1.20-3.40); #Monocytes 1.2 thou/uL (0.11-0.59); #Neutrophils 7.8 thou/uL (1.40-6.50); %Basophils 0.1 % (0.0-1.0); %Eosinophils 0.6 % (0.0-10.0); %Lymphocytes 19.2 % (21.0-51.0); %Monocytes 10.9 % (0.0-10.0); %Neutrophils 69.3 % (42.0-75.0); Hemoglobin 10.5 g/dL (12.0-16.0); Mean Corpuscular HGB CONC 32.6 g/dL (32.0-36.0); Mean Corpuscular Volume 95.1 fl (78.0-98.0); Mean Platelet Volume 7.3 fL (7.4-10.4); Platelet Count 253 10x3/uL (130-400); RBC Distribution Width 15.7 % (11.5-14.5); White Blood Cell (WBC) Count 11.2 10x3/uL (4.8-10.8)
[2022-09-30 06:04] LABS: Anion Gap 13 mmol/L (10-20); BUN (Urea Nitrogen) 19 mg/dL (9.8-20.1); Calc. Creatinine Clearance 86 mL/min (70-130); Calcium 8.9 mg/dL (7.8-10.44); Carbon Dioxide 27 mmol/L (23-31); Chloride 101 mmol/L (98-107); Estimated GFR 46; Glucose 117 mg/dL (83-110); Magnesium 2.1 mg/dL (1.6-2.6); Phosphorus 1.8 mg/dL (2.3-4.7); Potassium 3.5 mmol/L (3.5-5.1); Sodium 137 mmol/L (136-145)
[2022-09-30] MEDS: Budesonide 0.5 MG/2 ML NEB NEB SCH ×2 (06:38→18:56)
[2022-09-30] MEDS ORDERED: Potassium Phosphate 15 MMOL in Sodium Chloride 0.9% 100 ML IVPB SCH (08:00)
[2022-09-30] MEDS: Brimonidine Tartrate 0.2% Ophth Soln 5 ml Bottle EA EYE SCH ×2 (08:39→20:47)
[2022-09-30] MEDS: Potassium Chloride 20 MEQ in Premix Bag 1 BAG IVPB SCH ×2 (08:39→13:05)
[2022-09-30] MEDS: Pantoprazole 40 MG VIAL IVP SCH (08:41)
[2022-09-30] MEDS: Heparin 5,000 UNITS/ML VIAL SC SCH ×3 (08:41→20:48)
[2022-09-30] MEDS: Amlodipine 10 MG TAB PER TUBE SCH (08:42)
[2022-09-30] MEDS: Magnesium Oxide 400 MG TAB PO SCH (08:42)
[2022-09-30] MEDS: Ferrous Sulfate 325 MG TAB PO SCH (08:42)
[2022-09-30] MEDS: Lisinopril 2.5 MG TAB PO SCH (08:42)
[2022-09-30] MEDS: Cyanocobalamin (Vitamin B-12) 1,000 MCG TAB PO SCH (08:42)
[2022-09-30] MEDS: Aspirin Chewable 81 MG TAB PO SCH (08:42)
[2022-09-30] MEDS: Cholecalciferol 1,000 UNITS (25 MCG) TAB PO SCH (08:42)
[2022-09-30] MEDS: Ezetimibe 10 MG TAB PO SCH (08:43)
[2022-09-30] MEDS: Loratadine 10 MG TAB PO SCH (08:43)
[2022-09-30] MEDS: Acetaminophen 325 MG TAB PO PRN ×2 (08:50→15:32)
[2022-09-30] MEDS: Rosuvastatin 20 MG TAB PO SCH (20:48)
[2022-10-01] MEDS: Acetaminophen 325 MG TAB PO PRN ×4 (01:14→20:12)
[2022-10-01] MEDS: cefOXitin 2 GM in Sodium Chloride 0.9% 100 ML IVPB SCH (03:28)
[2022-10-01 06:46] LABS: Hemoglobin 10.7 g/dL (12.0-16.0); Mean Corpuscular HGB CONC 31.3 g/dL (32.0-36.0); Mean Corpuscular Volume 96.1 fl (78.0-98.0); Mean Platelet Volume 7.1 fL (7.4-10.4); Platelet Count 263 10x3/uL (130-400); RBC Distribution Width 15.9 % (11.5-14.5); Red Blood Cell (RBC) Count 3.55 mill/uL (4.20-5.40); White Blood Cell (WBC) Count 12.3 10x3/uL (4.8-10.8)
[2022-10-01 07:02] LABS: Band 13 % (5-11); Eosinophils 3 % (0-10); Lymphocytes 22 % (21-51); MDiff Complete? YES; Monocytes 7 % (0-10); Myelocyte 4 % (0-0); Neutrophil 51 % (42-75)
[2022-10-01 07:13] LABS: Anion Gap 12 mmol/L (10-20); BUN (Urea Nitrogen) 17 mg/dL (9.8-20.1); Calc. Creatinine Clearance 98 mL/min (70-130); Calcium 8.7 mg/dL (7.8-10.44); Carbon Dioxide 27 mmol/L (23-31); Chloride 103 mmol/L (98-107); Estimated GFR 54; Glucose 143 mg/dL (83-110); Magnesium 1.8 mg/dL (1.6-2.6); Phosphorus 2.2 mg/dL (2.3-4.7); Potassium 3.9 mmol/L (3.5-5.1); Sodium 138 mmol/L (136-145)
[2022-10-01] MEDS: Budesonide 0.5 MG/2 ML NEB NEB SCH ×2 (07:47→20:18)
[2022-10-01] MEDS ORDERED: Magnesium 2 GM/50 ML(in water) 2 GM in Premix Bag 1 BAG IVPB SCH (08:15)
[2022-10-01] MEDS: Aspirin Chewable 81 MG TAB PO SCH (09:19)
[2022-10-01] MEDS: Cefdinir 300 MG CAP PO SCH ×2 (09:19→20:12)
[2022-10-01] MEDS: Cholecalciferol 1,000 UNITS (25 MCG) TAB PO SCH (09:19)
[2022-10-01] MEDS: Lisinopril 2.5 MG TAB PO SCH (09:19)
[2022-10-01] MEDS: Ezetimibe 10 MG TAB PO SCH (09:19)
[2022-10-01] MEDS: Magnesium Oxide 400 MG TAB PO SCH (09:20)
[2022-10-01] MEDS: metroNIDAZOLE 500 MG TAB PO SCH ×3 (09:20→20:12)
[2022-10-01] MEDS: Amlodipine 10 MG TAB PER TUBE SCH (09:20)
[2022-10-01] MEDS: Loratadine 10 MG TAB PO SCH (09:21)
[2022-10-01] MEDS: Cyanocobalamin (Vitamin B-12) 1,000 MCG TAB PO SCH (09:21)
[2022-10-01] MEDS: Ferrous Sulfate 325 MG TAB PO SCH (09:22)
[2022-10-01] MEDS: Pantoprazole 40 MG VIAL IVP SCH (09:22)
[2022-10-01] MEDS: Heparin 5,000 UNITS/ML VIAL SC SCH ×3 (09:23→20:11)
[2022-10-01] MEDS: Brimonidine Tartrate 0.2% Ophth Soln 5 ml Bottle EA EYE SCH ×2 (09:51→20:20)
[2022-10-01] MEDS ORDERED: Polyethylene Glycol 3350 17 GM Packet PO SCH (15:15)
[2022-10-01] MEDS: Rosuvastatin 20 MG TAB PO SCH (20:12)
[2022-10-02] MEDS: Acetaminophen 325 MG TAB PO PRN ×3 (02:59→23:45)
[2022-10-02] MEDS: Ketorolac Tromethamine 30 MG/ML VIAL IVP PRN ×3 (03:52→20:37)
[2022-10-02] MEDS: Budesonide 0.5 MG/2 ML NEB NEB SCH ×2 (07:36→19:19)
[2022-10-02] MEDS: Pantoprazole 40 MG VIAL IVP SCH (08:17)
[2022-10-02] MEDS: Lisinopril 2.5 MG TAB PO SCH (08:17)
[2022-10-02] MEDS: Ezetimibe 10 MG TAB PO SCH (08:18)
[2022-10-02] MEDS: Cefdinir 300 MG CAP PO SCH ×2 (08:18→20:37)
[2022-10-02] MEDS: Aspirin Chewable 81 MG TAB PO SCH (08:18)
[2022-10-02] MEDS: Amlodipine 10 MG TAB PER TUBE SCH (08:18)
[2022-10-02] MEDS: Ferrous Sulfate 325 MG TAB PO SCH (08:18)
[2022-10-02] MEDS: Saccharomyces boulardii 250 MG CAP PO SCH (08:18)
[2022-10-02] MEDS: Cyanocobalamin (Vitamin B-12) 1,000 MCG TAB PO SCH (08:18)
[2022-10-02] MEDS: Cholecalciferol 1,000 UNITS (25 MCG) TAB PO SCH (08:18)
[2022-10-02 08:19] LABS: Anion Gap 14 mmol/L (10-20); BUN (Urea Nitrogen) 16 mg/dL (9.8-20.1); Calc. Creatinine Clearance 125 mL/min (70-130); Calcium 8.8 mg/dL (7.8-10.44); Carbon Dioxide 25 mmol/L (23-31); Chloride 102 mmol/L (98-107); Estimated GFR 73; Glucose 136 mg/dL (83-110); Magnesium 1.9 mg/dL (1.6-2.6); Phosphorus 2.8 mg/dL (2.3-4.7); Potassium 4.3 mmol/L (3.5-5.1); Sodium 137 mmol/L (136-145)
[2022-10-02] MEDS: Heparin 5,000 UNITS/ML VIAL SC SCH ×3 (08:20→20:36)
[2022-10-02] MEDS: metroNIDAZOLE 500 MG TAB PO SCH ×3 (08:20→20:37)
[2022-10-02] MEDS: Magnesium Oxide 400 MG TAB PO SCH (08:20)
[2022-10-02] MEDS: Loratadine 10 MG TAB PO SCH (08:20)
[2022-10-02] MEDS: Polyethylene Glycol 3350 17 GM Packet PO SCH (08:21)
[2022-10-02 08:28] LABS: Band 13 % (5-11); Eosinophils 1 % (0-10); Hemoglobin 10.5 g/dL (12.0-16.0); Lymphocytes 13 % (21-51); MDiff Complete? YES; Mean Corpuscular HGB CONC 32.5 g/dL (32.0-36.0); Mean Corpuscular Hemoglobin 30.6 pg (27.0-31.0); Mean Corpuscular Volume 94.3 fl (78.0-98.0); Mean Platelet Volume 7.2 fL (7.4-10.4); Metamyelocyte 6 % (0-0); Monocytes 13 % (0-10); Myelocyte 7 % (0-0); Neutrophil 44 % (42-75); Nucleated RBC 2 % (0); Platelet Count 287 10x3/uL (130-400); Platelet Morphology Comment Appears Adequate; Polychromasia MODERATE = 3-4 cells (100X) (0-2/hpf); RBC Distribution Width 15.7 % (11.5-14.5); Reactive Lymphocytes 3 % (0-10); Red Blood Cell (RBC) Count 3.42 mill/uL (4.20-5.40)
[2022-10-02] MEDS: Brimonidine Tartrate 0.2% Ophth Soln 5 ml Bottle EA EYE SCH ×2 (08:28→20:36)
[2022-10-02] MEDS ORDERED: Magnesium 2 GM/50 ML(in water) 2 GM in Premix Bag 1 BAG IVPB SCH (10:00)
[2022-10-02 11:14] LABS: Bilirubin Negative (Negative); Blood, Urine Negative (Negative); Glucose, Urine (Dipstick) Normal (Negative); Ketone, Urine Trace mg/dL (Negative); Leukocyte 25 Leu/uL (Negative); Nitrite Negative (Negative); Protein, Urine (Dipstick) 30 mg/dL (Neg-Trace); RBC/HPF 0-3 HPF (0-3); Specific Gravity, Urine 1.032 (1.002-1.036); Urobilinogen Normal mg/dL (Less than 2); WBC/HPF 0-3 HPF (0-3); pH, Urine 5.5 (5.0-9.0)
[2022-10-02 11:15] LABS: Bacteria/HPF Rare-Few HPF (None Seen); Clarity Hazy (Clear)
[2022-10-02] MEDS: Rosuvastatin 20 MG TAB PO SCH (20:37)
[2022-10-03] MEDS: Ketorolac Tromethamine 30 MG/ML VIAL IVP PRN (05:02)
[2022-10-03] MEDS: Budesonide 0.5 MG/2 ML NEB NEB SCH ×2 (06:25→18:14)
[2022-10-03 07:11] LABS: Hemoglobin 10.8 g/dL (12.0-16.0); Mean Corpuscular HGB CONC 33.4 g/dL (32.0-36.0); Mean Corpuscular Hemoglobin 31.9 pg (27.0-31.0); Mean Corpuscular Volume 95.6 fl (78.0-98.0); Mean Platelet Volume 6.9 fL (7.4-10.4); Platelet Count 317 10x3/uL (130-400); RBC Distribution Width 15.7 % (11.5-14.5); Red Blood Cell (RBC) Count 3.38 mill/uL (4.20-5.40); White Blood Cell (WBC) Count 15.9 10x3/uL (4.8-10.8)
[2022-10-03 07:16] LABS: Anion Gap 13 mmol/L (10-20); BUN (Urea Nitrogen) 17 mg/dL (9.8-20.1); Calc. Creatinine Clearance 110 mL/min (70-130); Calcium 8.9 mg/dL (7.8-10.44); Carbon Dioxide 26 mmol/L (23-31); Chloride 102 mmol/L (98-107); Estimated GFR 62; Glucose 127 mg/dL (83-110); Sodium 137 mmol/L (136-145)
[2022-10-03] MEDS ORDERED: Torsemide 20 MG TAB PO SCH (09:00)
[2022-10-03] MEDS: Brimonidine Tartrate 0.2% Ophth Soln 5 ml Bottle EA EYE SCH ×2 (09:36→20:20)
[2022-10-03] MEDS: Aspirin Chewable 81 MG TAB PO SCH (09:37)
[2022-10-03] MEDS: Pantoprazole 40 MG VIAL IVP SCH (09:37)
[2022-10-03] MEDS: Heparin 5,000 UNITS/ML VIAL SC SCH ×3 (09:37→20:21)
[2022-10-03] MEDS: Cholecalciferol 1,000 UNITS (25 MCG) TAB PO SCH (09:38)
[2022-10-03] MEDS: Amlodipine 10 MG TAB PER TUBE SCH (09:38)
[2022-10-03] MEDS: Lisinopril 2.5 MG TAB PO SCH (09:38)
[2022-10-03] MEDS: Cefdinir 300 MG CAP PO SCH (09:38)
[2022-10-03] MEDS: Magnesium Oxide 400 MG TAB PO SCH (09:38)
[2022-10-03] MEDS: metroNIDAZOLE 500 MG TAB PO SCH (09:39)
[2022-10-03] MEDS: Ezetimibe 10 MG TAB PO SCH (09:39)
[2022-10-03] MEDS: Ferrous Sulfate 325 MG TAB PO SCH (09:39)
[2022-10-03] MEDS: Cyanocobalamin (Vitamin B-12) 1,000 MCG TAB PO SCH (09:39)
[2022-10-03] MEDS: Polyethylene Glycol 3350 17 GM Packet PO SCH (09:39)
[2022-10-03] MEDS: Loratadine 10 MG TAB PO SCH (09:39)
[2022-10-03] MEDS: Saccharomyces boulardii 250 MG CAP PO SCH (09:39)
[2022-10-03 09:57] LABS: Anisocytosis SLIGHT = 6-15 cells (100X) (0-5/hpf); Band 15 % (5-11); Eosinophils 3 % (0-10); Lymphocytes 20 % (21-51); MDiff Complete? YES; Metamyelocyte 10 % (0-0); Monocytes 7 % (0-10); Myelocyte 5 % (0-0); Neutrophil 40 % (42-75); Platelet Morphology Comment Appears Adequate; Polychromasia SLIGHT = 2-3 cells (100X) (0-2/hpf)
[2022-10-03] MEDS ORDERED: Meropenem 1 GM in Sodium Chloride 0.9% 100 ML IVPB SCH ×2 (10:00→14:00)
[2022-10-03] MEDS: Acetaminophen 325 MG TAB PO PRN ×2 (10:35→16:10)
[2022-10-03] MEDS: Meropenem 1 GM in Sodium Chloride 0.9% 100 ML IVPB SCH (18:02)
[2022-10-03] MEDS: Rosuvastatin 20 MG TAB PO SCH (20:21)
[2022-10-04] MEDS: Meropenem 1 GM in Sodium Chloride 0.9% 100 ML IVPB SCH ×3 (02:47→18:28)
[2022-10-04] MEDS: Budesonide 0.5 MG/2 ML NEB NEB SCH ×2 (07:10→18:56)
[2022-10-04] MEDS: Brimonidine Tartrate 0.2% Ophth Soln 5 ml Bottle EA EYE SCH ×2 (09:42→21:15)
[2022-10-04] MEDS: Ketorolac Tromethamine 30 MG/ML VIAL IVP PRN (09:42)
[2022-10-04] MEDS: Heparin 5,000 UNITS/ML VIAL SC SCH ×3 (09:42→21:02)
[2022-10-04] MEDS: Cholecalciferol 1,000 UNITS (25 MCG) TAB PO SCH (09:43)
[2022-10-04] MEDS: Amlodipine 10 MG TAB PER TUBE SCH (09:43)
[2022-10-04] MEDS: Loratadine 10 MG TAB PO SCH (09:43)
[2022-10-04] MEDS: Aspirin Chewable 81 MG TAB PO SCH (09:43)
[2022-10-04] MEDS: Cyanocobalamin (Vitamin B-12) 1,000 MCG TAB PO SCH (09:43)
[2022-10-04] MEDS: Lisinopril 2.5 MG TAB PO SCH (09:43)
[2022-10-04] MEDS: Pantoprazole 40 MG VIAL IVP SCH (09:43)
[2022-10-04] MEDS: Saccharomyces boulardii 250 MG CAP PO SCH (09:44)
[2022-10-04] MEDS: Magnesium Oxide 400 MG TAB PO SCH (09:44)
[2022-10-04] MEDS: Ferrous Sulfate 325 MG TAB PO SCH (09:44)
[2022-10-04] MEDS: Ezetimibe 10 MG TAB PO SCH (09:44)
[2022-10-04] MEDS: Polyethylene Glycol 3350 17 GM Packet PO SCH (09:45)
[2022-10-04 10:58] LABS: Hemoglobin 11.6 g/dL (12.0-16.0); Mean Corpuscular HGB CONC 32.4 g/dL (32.0-36.0); Mean Corpuscular Volume 95.7 fl (78.0-98.0); Mean Platelet Volume 6.8 fL (7.4-10.4); Platelet Count 408 10x3/uL (130-400); RBC Distribution Width 16.2 % (11.5-14.5); Red Blood Cell (RBC) Count 3.73 mill/uL (4.20-5.40)
[2022-10-04 11:21] LABS: #Eosinphils 0.3 thou/uL (0.0-0.7); #Lymphocytes 2.7 thou/uL (1.20-3.40); #Monocytes 1.6 thou/uL (0.11-0.59); #Neutrophils 14.3 thou/uL (1.40-6.50); %Basophils 0.2 % (0.0-1.0); %Eosinophils 1.8 % (0.0-10.0); %Lymphocytes 14.3 % (21.0-51.0); %Monocytes 8.4 % (0.0-10.0); %Neutrophils 75.4 % (42.0-75.0); Anisocytosis SLIGHT = 6-15 cells (100X) (0-5/hpf); Band 10 % (5-11); Lymphocytes 14 % (21-51); MDiff Complete? YES; Metamyelocyte 4 % (0-0); Monocytes 6 % (0-10); Myelocyte 5 % (0-0); Neutrophil 61 % (42-75); Nucleated RBC 1 % (0); Platelet Morphology Comment Appears Adequate; Polychromasia SLIGHT = 2-3 cells (100X) (0-2/hpf)
[2022-10-04 11:26] LABS: Anion Gap 16 mmol/L (10-20); BUN (Urea Nitrogen) 16 mg/dL (9.8-20.1); Calc. Creatinine Clearance 105 mL/min (70-130); Calcium 9.1 mg/dL (7.8-10.44); Carbon Dioxide 27 mmol/L (23-31); Chloride 100 mmol/L (98-107); Estimated GFR 59; Glucose 159 mg/dL (83-110); Potassium 3.8 mmol/L (3.5-5.1); Sodium 137 mmol/L (136-145)
[2022-10-04] MEDS ORDERED: traMADol HCl 50 MG TAB PO PRN (18:44)
[2022-10-04] MEDS: Rosuvastatin 20 MG TAB PO SCH (21:02)
[2022-10-05] MEDS: Meropenem 1 GM in Sodium Chloride 0.9% 100 ML IVPB SCH ×2 (02:50→11:44)
[2022-10-05 05:57] LABS: Hemoglobin 9.9 g/dL (12.0-16.0); Mean Corpuscular HGB CONC 32.3 g/dL (32.0-36.0); Mean Corpuscular Hemoglobin 30.7 pg (27.0-31.0); Mean Corpuscular Volume 95.2 fl (78.0-98.0); Mean Platelet Volume 6.9 fL (7.4-10.4); Platelet Count 361 10x3/uL (130-400); RBC Distribution Width 15.8 % (11.5-14.5); Red Blood Cell (RBC) Count 3.24 mill/uL (4.20-5.40); White Blood Cell (WBC) Count 17.5 10x3/uL (4.8-10.8)
[2022-10-05 06:00] LABS: Anion Gap 12 mmol/L (10-20); BUN (Urea Nitrogen) 17 mg/dL (9.8-20.1); Calc. Creatinine Clearance 120 mL/min (70-130); Calcium 8.5 mg/dL (7.8-10.44); Carbon Dioxide 26 mmol/L (23-31); Chloride 103 mmol/L (98-107); Estimated GFR 68; Glucose 112 mg/dL (83-110); Potassium 3.8 mmol/L (3.5-5.1); Sodium 137 mmol/L (136-145)
[2022-10-05 06:10] LABS: Band 23 % (5-11); Eosinophils 1 % (0-10); Lymphocytes 12 % (21-51); MDiff Complete? YES; Metamyelocyte 3 % (0-0); Monocytes 6 % (0-10); Myelocyte 3 % (0-0); Neutrophil 52 % (42-75)
[2022-10-05] MEDS: Budesonide 0.5 MG/2 ML NEB NEB SCH (06:59)
[2022-10-05] MEDS: Aspirin Chewable 81 MG TAB PO SCH (08:52)
[2022-10-05] MEDS: Cyanocobalamin (Vitamin B-12) 1,000 MCG TAB PO SCH (08:53)
[2022-10-05] MEDS: Ferrous Sulfate 325 MG TAB PO SCH (08:53)
[2022-10-05] MEDS: Magnesium Oxide 400 MG TAB PO SCH (08:53)
[2022-10-05] MEDS: Amlodipine 10 MG TAB PER TUBE SCH (08:53)
[2022-10-05] MEDS: Ezetimibe 10 MG TAB PO SCH (08:53)
[2022-10-05] MEDS: Saccharomyces boulardii 250 MG CAP PO SCH (08:53)
[2022-10-05] MEDS: Cholecalciferol 1,000 UNITS (25 MCG) TAB PO SCH (08:53)
[2022-10-05] MEDS: Loratadine 10 MG TAB PO SCH (08:53)
[2022-10-05] MEDS: Lisinopril 2.5 MG TAB PO SCH (08:54)
[2022-10-05] MEDS: Polyethylene Glycol 3350 17 GM Packet PO SCH (08:55)
[2022-10-05] MEDS: Pantoprazole 40 MG VIAL IVP SCH (08:55)
[2022-10-05] MEDS: Heparin 5,000 UNITS/ML VIAL SC SCH ×2 (08:56→16:46)
[2022-10-05] MEDS: Brimonidine Tartrate 0.2% Ophth Soln 5 ml Bottle EA EYE SCH (09:15)
[2022-10-05 10:20] LABS: Albumin 2.8 g/dL (3.4-4.8)
[2022-10-05 10:23] LABS: Protein, Total 6.5 g/dL (5.8-8.1)
[2022-10-05 10:25] LABS: Alkaline Phosphatase 220 U/L (40-110); Bilirubin, Total 0.5 mg/dL (0.2-1.2)
[2022-10-05 10:28] LABS: AST (SGOT) 18 U/L (5-34); Bilirubin, Direct 0.3 mg/dL (0.1-0.3)
[2022-10-05 10:29] LABS: ALT (SGPT) 12 U/L (8-55)
[2022-10-05 12:48] LABS: Bacteria/HPF None Seen HPF (None Seen); Bilirubin Negative (Negative); Blood, Urine Negative (Negative); CAUTI Indications for Culture Pelvic or flank pain; Clarity Clear (Clear); Glucose, Urine (Dipstick) Normal (Negative); Ketone, Urine Trace mg/dL (Negative); Leukocyte 250 Leu/uL (Negative); Nitrite Negative (Negative); Protein, Urine (Dipstick) 10 mg/dL (Neg-Trace); RBC/HPF 0-3 HPF (0-3); Specific Gravity, Urine 1.019 (1.002-1.036); Squamous Epithelial 0-3 HPF (0-3); Urobilinogen Normal mg/dL (Less than 2); pH, Urine 6.5 (5.0-9.0)
[2022-10-05 12:49] LABS: Urine Culture Reflex No No
[2022-10-05 16:28] VITALS: BP 148/71; TEMP 98.1
== END 2022-10-05 17:23 | disposition home or self-care (01) | DRG 853 ==
LOC: ERS 10:59 → T4-B 18:38 → CCU 09-28 19:49 → SURG A 09-29 16:50
PROVIDERS: ADMIT Nurse Practitioner Family; ATTEND Internal Medicine
PROC: 3E03329 Introduction of Other Anti-infective into Peripheral Vein, Percutaneous Approach (ICD-10-PCS; 2022-09-27)
PROC: 0DTJ4ZZ Resection of Appendix, Percutaneous Endoscopic Approach (ICD-10-PCS; principal; 2022-09-28)
PROC: 0F9G4ZZ Drainage of Pancreas, Percutaneous Endoscopic Approach (ICD-10-PCS; 2022-09-28)
PROC: 5A1935Z Respiratory Ventilation, Less than 24 Consecutive Hours (ICD-10-PCS; 2022-09-28)
DX: A41.9 Sepsis, unspecified organism (principal); I50.33 Acute on chronic diastolic (congestive) heart failure; K35.33 Acute appendicitis with perforation, localized peritonitis, and gangrene, with abscess; J96.01 Acute respiratory failure with hypoxia; I13.0 Hypertensive heart and chronic kidney disease with heart failure and stage 1 through stage 4 chronic kidney disease, or unspecified chronic kidney disease; E87.1 Hypo-osmolality and hyponatremia; Z68.43 Body mass index [BMI] 50.0-59.9, adult; J98.11 Atelectasis; E11.22 Type 2 diabetes mellitus with diabetic chronic kidney disease; K21.9 Gastro-esophageal reflux disease without esophagitis; K52.9 Noninfective gastroenteritis and colitis, unspecified; N18.31 Chronic kidney disease, stage 3a; E66.01 Morbid (severe) obesity due to excess calories; Z96.612 Presence of left artificial shoulder joint; Z96.611 Presence of right artificial shoulder joint; Z96.653 Presence of artificial knee joint, bilateral; D63.1 Anemia in chronic kidney disease; Z98.51 Tubal ligation status; Z88.0 Allergy status to penicillin; Z88.1 Allergy status to other antibiotic agents; Z79.899 Other long term (current) drug therapy; Z79.84 Long term (current) use of oral hypoglycemic drugs; J45.909 Unspecified asthma, uncomplicated
CPT/HCPCS: 36415; 36416; 71045; 71275; 74176; 74177; 80048; 80053; 81001; 82805; 83605; 83690; 83735; 83880; 84100; 84443; 84484; 85025; 85610; 85730; 86850; 86900; 86901; 87040; 87076; 87086; 87149; 87811; 88304; 94002; 94003; 94640; 96365; 96375; C9113; J0694; J0744; J1100; J1644; J1815; J1885; J1940; J1956; J2185; J2270; J2704; J3010; J3475; J3480; J3490; J7042; J7120; J7620; J7626; Q9967

== ENCOUNTER 2023-12-12 08:34 | Outpatient (CLI) | payer MEDICARE, OTHER | END 2023-12-12 08:35 | disposition home or self-care (01) | LOC: BICMAMMO 08:34 | PROVIDERS: ATTEND Family Medicine | DX: Z12.31 Encounter for screening mammogram for malignant neoplasm of breast (principal); Z91.89 Other specified personal risk factors, not elsewhere classified | CPT/HCPCS: 77063; 77067 ==

== ENCOUNTER 2023-12-28 10:22 | Outpatient (CLI) | payer MEDICARE, OTHER | END 2023-12-28 10:23 | disposition home or self-care (01) | LOC: BICCT 10:22 | PROVIDERS: ATTEND Internal Medicine Critical Care Medicine | DX: R91.1 Solitary pulmonary nodule (principal); J98.11 Atelectasis | CPT/HCPCS: 71260 ==

== ENCOUNTER 2024-08-13 09:05 | Inpatient (IN) | payer MEDICARE, OTHER ==
[2024-08-13] MEDS ORDERED: Furosemide 40 MG (4 mL) VIAL ONE ×2 (10:33→16:30)
[2024-08-13 11:36] LABS: #Basophils 0.07 10x3/uL (0.0-0.2); %Eosinophils 1.9 % (0.0-10.0); %Lymphocytes 25.2 % (21.0-51.0); %Monocytes 10.7 % (0.0-10.0); %Neutrophils 60.8 % (42.0-75.0); Hematocrit 30.4 % (36.0-47.0); Hemoglobin 9.1 g/dL (12.0-16.0); Mean Corpuscular HGB CONC 29.9 g/dL (32.0-36.0); Mean Corpuscular Hemoglobin 31.7 pg (27.0-31.0); Mean Corpuscular Volume 105.9 fL (78.0-98.0); Platelet Count 209 10x3/uL (130-400); RBC Distribution Width 16.5 % (11.5-14.5); Red Blood Cell (RBC) Count 2.87 mill/uL (4.20-5.40)
[2024-08-13 11:49] LABS: ALT (SGPT) 17 U/L (8-55); AST (SGOT) 34 U/L (5-34); Albumin 3.4 g/dL (3.4-4.8); Alkaline Phosphatase 142 U/L (40-110); Anion Gap 15 mmol/L (10-20); BUN (Urea Nitrogen) 21 mg/dL (9.8-20.1); Bilirubin, Total 1.1 mg/dL (0.2-1.2); Calc. Creatinine Clearance 0 mL/min (70-130); Calcium 9.3 mg/dL (7.8-10.44); Carbon Dioxide 26 mmol/L (23-31); Chloride 104 mmol/L (98-107); Estimated GFR 54; Globulin 3.7 g/dL (2.4-3.5); Glucose 111 mg/dL (83-110); Potassium 4.7 mmol/L (3.5-5.1); Protein, Total 7.1 g/dL (5.8-8.1); Sodium 140 mmol/L (136-145)
[2024-08-13 11:54] LABS: Troponin I Less than 0.010 ng/mL (< 0.028)
[2024-08-13] MEDS ORDERED: Senokot S 8.6-50 MG TAB PO PRN (12:21)
[2024-08-13] MEDS ORDERED: Calcium Carbonate 500 MG ChewTAB PO PRN (12:21)
[2024-08-13] MEDS ORDERED: Ondansetron PF 4 MG/2 ML Vial IVP PRN (12:21)
[2024-08-13] MEDS ORDERED: Glucagon 1 MG/ML KIT IM PRN (12:24)
[2024-08-13] MEDS ORDERED: Dextrose 5% in Water 1,000 ML IV PRN (12:24)
[2024-08-13] MEDS ORDERED: Dextrose 50% Abboject 50 ML SYRINGE SLOW IVP PRN (12:24)
[2024-08-13] MEDS ORDERED: Insulin Lispro 100 UNIT/ML 10 ML VIAL SC PRN ×2 (12:24)
[2024-08-13 15:44] LABS: Troponin I 0.039 ng/mL (< 0.028)
[2024-08-13] MEDS: Furosemide 40 MG (4 mL) VIAL SLOW IVP SCH (16:34)
[2024-08-13] MEDS: FLU (Fluad Triv) TS24-25 (65UP)/MF59C/PF 45 MCG/0.5 ML Syringe IM ONE (17:11)
[2024-08-13 17:13] VITALS: BMI 57.5
[2024-08-13 19:14] LABS: Troponin I Less than 0.010 ng/mL (< 0.028)
[2024-08-13] MEDS: Acetaminophen 325 MG TAB PO PRN (21:46)
[2024-08-13] MEDS: Rosuvastatin 20 MG TAB PO SCH (21:46)
[2024-08-13] MEDS: Brimonidine Tartrate 0.2% Ophth Soln 5 ml Bottle EA EYE SCH (22:30)
[2024-08-14 06:32] LABS: %Basophils 1.4 % (0.0-1.0); %Eosinophils 3.6 % (0.0-10.0); %Lymphocytes 31.2 % (21.0-51.0); %Monocytes 10.2 % (0.0-10.0); %Neutrophils 53.2 % (42.0-75.0); Hematocrit 32.4 % (36.0-47.0); Hemoglobin 10.1 g/dL (12.0-16.0); Mean Corpuscular HGB CONC 31.2 g/dL (32.0-36.0); Mean Corpuscular Hemoglobin 31.9 pg (27.0-31.0); Mean Corpuscular Volume 102.2 fL (78.0-98.0); Mean Platelet Volume 9.4 fL (7.4-10.4); Platelet Count 258 10x3/uL (130-400); RBC Distribution Width 16.1 % (11.5-14.5); Red Blood Cell (RBC) Count 3.17 mill/uL (4.20-5.40)
[2024-08-14 06:43] LABS: Iron 49 ug/dL (50-170); Iron Binding Capacity, Total 366 mcg/dL (265-497)
[2024-08-14 06:49] LABS: ALT (SGPT) 17 U/L (8-55); AST (SGOT) 21 U/L (5-34); Albumin 3.7 g/dL (3.4-4.8); Alkaline Phosphatase 156 U/L (40-110); Anion Gap 16 mmol/L (10-20); BUN (Urea Nitrogen) 19 mg/dL (9.8-20.1); Bilirubin, Total 1.6 mg/dL (0.2-1.2); Calc. Creatinine Clearance 109 mL/min (70-130); Calcium 9.6 mg/dL (7.8-10.44); Carbon Dioxide 26 mmol/L (23-31); Chloride 104 mmol/L (98-107); Estimated GFR 56; Globulin 3.8 g/dL (2.4-3.5); Glucose 107 mg/dL (83-110); Iron 49 ug/dL (50-170); Iron Binding Capacity, Total 368 mcg/dL (265-497); Potassium 3.6 mmol/L (3.5-5.1); Protein, Total 7.5 g/dL (5.8-8.1); Sodium 142 mmol/L (136-145)
[2024-08-14] MEDS: Mometasone 200 MCG/Formoterol 5 MCG 120 PUFF INHALER INH SCH (08:04)
[2024-08-14] MEDS: glipiZIDE XL 5 mg ER.TAB PO SCH (09:00)
[2024-08-14] MEDS: NIFEdipine XL 60 MG ER.TAB PO SCH (09:00)
[2024-08-14] MEDS: Ezetimibe 10 MG TAB PO SCH (09:01)
[2024-08-14] MEDS: Dronedarone HCl 400 MG TAB PO SCH (09:01)
[2024-08-14] MEDS: Apixaban 5 MG TAB PO SCH (09:01)
[2024-08-14] MEDS: Loratadine 10 MG TAB PO SCH (09:01)
[2024-08-14] MEDS: Pantoprazole DR 40 MG TAB PO SCH (20:50)
[2024-08-14] MEDS ORDERED: Dronedarone HCl 400 MG TAB PO SCH ×2 (21:00)
[2024-08-15 04:56] LABS: #Basophils 0.07 10x3/uL (0.0-0.2); %Basophils 1.1 % (0.0-1.0); %Eosinophils 2.9 % (0.0-10.0); %Lymphocytes 28.7 % (21.0-51.0); %Monocytes 11.9 % (0.0-10.0); %Neutrophils 54.9 % (42.0-75.0); Hematocrit 31.5 % (36.0-47.0); Hemoglobin 9.8 g/dL (12.0-16.0); Mean Corpuscular HGB CONC 31.1 g/dL (32.0-36.0); Mean Corpuscular Hemoglobin 31.8 pg (27.0-31.0); Mean Corpuscular Volume 102.3 fL (78.0-98.0); Mean Platelet Volume 9.5 fL (7.4-10.4); Platelet Count 216 10x3/uL (130-400); Red Blood Cell (RBC) Count 3.08 mill/uL (4.20-5.40)
[2024-08-15 05:01] LABS: Anion Gap 11 mmol/L (10-20); BUN (Urea Nitrogen) 20 mg/dL (9.8-20.1); Calc. Creatinine Clearance 104 mL/min (70-130); Calcium 9.2 mg/dL (7.8-10.44); Carbon Dioxide 30 mmol/L (23-31); Chloride 103 mmol/L (98-107); Estimated GFR 53; Glucose 97 mg/dL (83-110); Potassium 3.4 mmol/L (3.5-5.1); Sodium 141 mmol/L (136-145)
[2024-08-15] MEDS ORDERED: Dronedarone HCl 400 MG TAB PO SCH (09:00)
[2024-08-15] MEDS: Potassium Chloride 20 MEQ TAB PO SCH (09:28)
[2024-08-15] MEDS: NIFEdipine XL 30 MG ER.TAB PO SCH (09:29)
[2024-08-15] MEDS: Carvedilol 6.25 MG TAB PO SCH (16:20)
[2024-08-16 05:55] LABS: Anion Gap 11 mmol/L (10-20); BUN (Urea Nitrogen) 18 mg/dL (9.8-20.1); Calc. Creatinine Clearance 88 mL/min (70-130); Calcium 8.9 mg/dL (7.8-10.44); Carbon Dioxide 32 mmol/L (23-31); Chloride 101 mmol/L (98-107); Estimated GFR 45; Glucose 110 mg/dL (83-110); Iron 40 ug/dL (50-170); Magnesium 1.5 mg/dL (1.6-2.6); Potassium 3.4 mmol/L (3.5-5.1); Sodium 141 mmol/L (136-145)
[2024-08-16 06:17] LABS: Iron 41 ug/dL (50-170); Iron Binding Capacity, Total 305 mcg/dL (265-497)
[2024-08-16] MEDS ORDERED: PROPOFOL 40 ML ONE (08:44)
[2024-08-16] MEDS ORDERED: Ketamine In 0.9 % NaCl 50 MG/5 ML SYRINGE ONE (08:47)
[2024-08-16] MEDS ORDERED: Lidocaine 1% PF 5 ML VIAL ONE (08:55)
[2024-08-16] MEDS ORDERED: Midazolam HCl 2 mg/2 ml Vial ONE (08:56)
[2024-08-16] MEDS: Magnesium 2 GM/50 ML(in water) 2 GM in Premix 1 BAG IVPB SCH (10:11)
[2024-08-16] MEDS: Carvedilol 3.125 MG TAB PO SCH (16:12)
[2024-08-17 04:54] LABS: Anion Gap 16 mmol/L (10-20); BUN (Urea Nitrogen) 21 mg/dL (9.8-20.1); Calc. Creatinine Clearance 82 mL/min (70-130); Carbon Dioxide 26 mmol/L (23-31); Chloride 101 mmol/L (98-107); Estimated GFR 42; Glucose 103 mg/dL (83-110); Potassium 3.8 mmol/L (3.5-5.1); Sodium 139 mmol/L (136-145)
[2024-08-17] MEDS: Carvedilol 3.125 MG TAB PO SCH (17:29)
[2024-08-18] MEDS: Enoxaparin 40 MG (0.4 mL) SYRINGE SC SCH (09:58)
[2024-08-18] MEDS: Apixaban 5 MG TAB PO SCH ×2 (11:26→20:55)
[2024-08-19 09:42] LABS: Anion Gap 20 mmol/L (10-20); BUN (Urea Nitrogen) 25 mg/dL (9.8-20.1); Calc. Creatinine Clearance 81 mL/min (70-130); Calcium 9.4 mg/dL (7.8-10.44); Carbon Dioxide 26 mmol/L (23-31); Chloride 100 mmol/L (98-107); Estimated GFR 42; Glucose 145 mg/dL (83-110); Potassium 3.7 mmol/L (3.5-5.1); Sodium 142 mmol/L (136-145)
[2024-08-19 15:56] VITALS: BP 122/74; TEMP 97.8
== END 2024-08-19 17:03 | disposition home or self-care (01) | DRG 291 ==
LOC: SUATTDRO 09:05 → ERS 09:05 → ERHOLD 12:24 → 2NO 17:19
PROVIDERS: ADMIT Internal Medicine; ATTEND Hospitalist
PROC: 0DJ08ZZ Inspection of Upper Intestinal Tract, Via Natural or Artificial Opening Endoscopic (ICD-10-PCS; principal; 2024-08-16)
DX: I13.0 Hypertensive heart and chronic kidney disease with heart failure and stage 1 through stage 4 chronic kidney disease, or unspecified chronic kidney disease (principal); I50.33 Acute on chronic diastolic (congestive) heart failure; J96.01 Acute respiratory failure with hypoxia; Z68.43 Body mass index [BMI] 50.0-59.9, adult; I48.19 Other persistent atrial fibrillation; E78.5 Hyperlipidemia, unspecified; K21.9 Gastro-esophageal reflux disease without esophagitis; E66.01 Morbid (severe) obesity due to excess calories; Z79.01 Long term (current) use of anticoagulants; Z88.0 Allergy status to penicillin; Z88.8 Allergy status to other drugs, medicaments and biological substances; I89.0 Lymphedema, not elsewhere classified; N18.9 Chronic kidney disease, unspecified; Z98.51 Tubal ligation status; Z96.653 Presence of artificial knee joint, bilateral; I35.0 Nonrheumatic aortic (valve) stenosis; Z79.4 Long term (current) use of insulin; D50.9 Iron deficiency anemia, unspecified; E87.6 Hypokalemia; E83.42 Hypomagnesemia
CPT/HCPCS: 36415; 36416; 71045; 80048; 80053; 82728; 83540; 83550; 83735; 83880; 84443; 84484; 85025; 93005; 93010; 93306; 93798; 94664; 94760; 96374; 97139; J1940; J2250; J2704; J3475; J3490

== ENCOUNTER 2025-07-14 22:19 | Inpatient (IN) | payer MEDICARE ==
[2025-07-14 23:14] LABS: #Basophils 0.05 10x3/uL (0.0-0.2); #Eosinophils 0.14 10x3/uL (0.0-0.7); #Monocytes 0.87 10x3/uL (0.11-0.59); #Neutrophils 4.79 10x3/uL (1.40-6.50); %Basophils 0.7 % (0.0-1.0); %Eosinophils 1.9 % (0.0-10.0); %Lymphocytes 19.5 % (21.0-51.0); %Monocytes 11.9 % (0.0-10.0); %Neutrophils 65.3 % (42.0-75.0); Hematocrit 32.2 % (36.0-47.0); Hemoglobin 9.6 g/dL (12.0-16.0); Mean Corpuscular Hemoglobin 29.9 pg (27.0-31.0); Mean Corpuscular Volume 100.3 fL (78.0-98.0); Platelet Count 161 10x3/uL (130-400); Red Blood Cell (RBC) Count 3.21 mill/uL (4.20-5.40); White Blood Cell (WBC) Count 7.33 10x3/uL (4.8-10.8)
[2025-07-14 23:29] LABS: ALT (SGPT) 12 U/L (Less than 34); AST (SGOT) 21 U/L (11-34); Albumin 3.5 g/dL (3.1-4.5); Alkaline Phosphatase 143 U/L (40-110); Anion Gap 15 mmol/L (10-20); BUN (Urea Nitrogen) 21 mg/dL (9.8-20.1); Bilirubin, Total 1.3 mg/dL (0.3-1.2); Calc. Creatinine Clearance 0 mL/min (70-130); Calcium 9.2 mg/dL (7.8-10.44); Carbon Dioxide 25 mmol/L (23-31); Chloride 105 mmol/L (98-107); Globulin 3.7 g/dL (2.4-3.5); Glucose 129 mg/dL (83-110); Potassium 4.5 mmol/L (3.5-5.1); Sodium 140 mmol/L (136-145)
[2025-07-15] MEDS ORDERED: Furosemide 40 MG (4 mL) VIAL ONE (00:21)
[2025-07-15] MEDS ORDERED: Dextrose 50% Abboject 50 ML SYRINGE SLOW IVP PRN (03:52)
[2025-07-15] MEDS ORDERED: Ondansetron PF 4 MG/2 ML Vial IVP PRN (03:52)
[2025-07-15] MEDS ORDERED: Glucagon 1 MG/ML KIT IM PRN (03:52)
[2025-07-15] MEDS: Furosemide 40 MG (4 mL) VIAL SLOW IVP SCH (06:09)
[2025-07-15 07:38] LABS: Iron 51 ug/dL (50-170); Iron Binding Capacity, Total 351 mcg/dL (265-497)
[2025-07-15] MEDS: Apixaban 5 MG TAB PO SCH (09:05)
[2025-07-15] MEDS: Carvedilol 3.125 MG TAB PO SCH (09:06)
[2025-07-15] MEDS: Sodium Ferric Gluconate 250 MG in Sodium Chloride 0.9% 250 ML 250 ML IVPB SCH (11:11)
[2025-07-15] MEDS ORDERED: Furosemide 40 MG (4 mL) VIAL SLOW IVP SCH (14:00)
[2025-07-15] MEDS: Acetaminophen 325 MG TAB PO PRN (16:55)
[2025-07-16 04:36] LABS: #Basophils 0.04 10x3/uL (0.0-0.2); #Eosinophils 0.17 10x3/uL (0.0-0.7); #Monocytes 0.92 10x3/uL (0.11-0.59); #Neutrophils 3.81 10x3/uL (1.40-6.50); %Basophils 0.6 % (0.0-1.0); %Eosinophils 2.6 % (0.0-10.0); %Lymphocytes 22.7 % (21.0-51.0); %Monocytes 14.3 % (0.0-10.0); %Neutrophils 59.2 % (42.0-75.0); Hematocrit 32.1 % (36.0-47.0); Hemoglobin 9.8 g/dL (12.0-16.0); Mean Corpuscular Hemoglobin 30.2 pg (27.0-31.0); Mean Corpuscular Volume 99.1 fL (78.0-98.0); Platelet Count 157 10x3/uL (130-400); Red Blood Cell (RBC) Count 3.24 mill/uL (4.20-5.40); White Blood Cell (WBC) Count 6.44 10x3/uL (4.8-10.8)
[2025-07-16 04:59] LABS: Anion Gap 14 mmol/L (10-20); BUN (Urea Nitrogen) 21 mg/dL (9.8-20.1); Calc. Creatinine Clearance 106 mL/min (70-130); Calcium 9.2 mg/dL (7.8-10.44); Carbon Dioxide 31 mmol/L (23-31); Chloride 102 mmol/L (98-107); Glucose 99 mg/dL (83-110); Magnesium 1.5 mg/dL (1.6-2.6); Potassium 4.0 mmol/L (3.5-5.1); Sodium 143 mmol/L (136-145)
[2025-07-16] MEDS: Ezetimibe 10 MG TAB PO SCH (12:38)
[2025-07-16] MEDS: Ferrous Sulfate 325 MG TAB PO SCH (12:38)
[2025-07-16] MEDS: Magnesium 2 GM/50 ML(in water) 2 GM in Premix 1 BAG IVPB SCH (16:40)
[2025-07-16] MEDS: Losartan 25 MG TAB PO SCH (18:01)
[2025-07-16] MEDS: Rosuvastatin 20 MG TAB PO SCH (20:14)
[2025-07-16] MEDS: Brimonidine Tartrate 0.2% Ophth Soln 5 ml Bottle EA EYE SCH (20:14)
[2025-07-17 05:08] LABS: Anion Gap 15 mmol/L (10-20); BUN (Urea Nitrogen) 22 mg/dL (9.8-20.1); Calc. Creatinine Clearance 125 mL/min (70-130); Calcium 9.6 mg/dL (7.8-10.44); Carbon Dioxide 29 mmol/L (23-31); Chloride 100 mmol/L (98-107); Glucose 83 mg/dL (83-110); Potassium 4.1 mmol/L (3.5-5.1); Sodium 140 mmol/L (136-145)
[2025-07-17] MEDS: Pantoprazole 40 MG DR.TAB PO SCH (08:43)
[2025-07-17] MEDS: Folic Acid 1 MG TAB PO SCH (08:43)
[2025-07-17] MEDS: glipiZIDE XL 5 mg ER.TAB PO SCH (08:43)
[2025-07-17] MEDS: Sodium Ferric Gluconate 250 MG in Sodium Chloride 0.9% 250 ML 250 ML IVPB SCH (08:44)
[2025-07-17] MEDS ORDERED: Losartan 25 MG TAB PO SCH (09:00)
[2025-07-18 04:36] LABS: #Basophils 0.05 10x3/uL (0.0-0.2); #Eosinophils 0.15 10x3/uL (0.0-0.7); #Monocytes 0.97 10x3/uL (0.11-0.59); #Neutrophils 3.55 10x3/uL (1.40-6.50); %Basophils 0.8 % (0.0-1.0); %Eosinophils 2.4 % (0.0-10.0); %Lymphocytes 24.2 % (21.0-51.0); %Monocytes 15.4 % (0.0-10.0); %Neutrophils 56.2 % (42.0-75.0); Hematocrit 34.3 % (36.0-47.0); Hemoglobin 10.3 g/dL (12.0-16.0); Mean Corpuscular Hemoglobin 29.9 pg (27.0-31.0); Mean Corpuscular Volume 99.4 fL (78.0-98.0); Platelet Count 191 10x3/uL (130-400); Red Blood Cell (RBC) Count 3.45 mill/uL (4.20-5.40); White Blood Cell (WBC) Count 6.31 10x3/uL (4.8-10.8)
[2025-07-18 04:50] LABS: Anion Gap 16 mmol/L (10-20); BUN (Urea Nitrogen) 21 mg/dL (9.8-20.1); Calc. Creatinine Clearance 114 mL/min (70-130); Calcium 9.1 mg/dL (7.8-10.44); Carbon Dioxide 33 mmol/L (23-31); Chloride 98 mmol/L (98-107); Glucose 88 mg/dL (83-110); Potassium 3.2 mmol/L (3.5-5.1); Sodium 144 mmol/L (136-145)
[2025-07-18] MEDS: Spironolactone 25 MG TAB PO SCH (10:43)
[2025-07-19 05:03] LABS: Anion Gap 18 mmol/L (10-20); BUN (Urea Nitrogen) 21 mg/dL (9.8-20.1); Calc. Creatinine Clearance 113 mL/min (70-130); Calcium 9.3 mg/dL (7.8-10.44); Carbon Dioxide 32 mmol/L (23-31); Chloride 96 mmol/L (98-107); Glucose 93 mg/dL (83-110); Magnesium 1.3 mg/dL (1.6-2.6); Potassium 3.6 mmol/L (3.5-5.1); Sodium 142 mmol/L (136-145)
[2025-07-19] MEDS: Spironolactone 25 MG TAB PO SCH (09:30)
[2025-07-20 04:45] LABS: Anion Gap 16 mmol/L (10-20); BUN (Urea Nitrogen) 27 mg/dL (9.8-20.1); Calc. Creatinine Clearance 83 mL/min (70-130); Calcium 9.2 mg/dL (7.8-10.44); Carbon Dioxide 26 mmol/L (23-31); Chloride 100 mmol/L (98-107); Glucose 116 mg/dL (83-110); Potassium 3.5 mmol/L (3.5-5.1); Sodium 138 mmol/L (136-145)
[2025-07-20] MEDS ORDERED: Furosemide 40 MG (4 mL) VIAL SLOW IVP SCH (09:00)
[2025-07-20] MEDS: Spironolactone 25 MG TAB PO SCH (09:16)
[2025-07-20] MEDS ORDERED: Furosemide 20 MG TAB PO SCH (14:00)
[2025-07-21 05:23] LABS: #Basophils 0.05 10x3/uL (0.0-0.2); #Eosinophils 0.25 10x3/uL (0.0-0.7); #Monocytes 0.81 10x3/uL (0.11-0.59); #Neutrophils 3.06 10x3/uL (1.40-6.50); %Basophils 0.8 % (0.0-1.0); %Eosinophils 4.1 % (0.0-10.0); %Lymphocytes 30.4 % (21.0-51.0); %Monocytes 13.4 % (0.0-10.0); %Neutrophils 50.5 % (42.0-75.0); Hematocrit 36.5 % (36.0-47.0); Hemoglobin 11.0 g/dL (12.0-16.0); Mean Corpuscular Hemoglobin 30.1 pg (27.0-31.0); Mean Corpuscular Volume 100.0 fL (78.0-98.0); Platelet Count 203 10x3/uL (130-400); Red Blood Cell (RBC) Count 3.65 mill/uL (4.20-5.40); White Blood Cell (WBC) Count 6.06 10x3/uL (4.8-10.8)
[2025-07-21 05:38] LABS: Anion Gap 14 mmol/L (10-20); BUN (Urea Nitrogen) 30 mg/dL (9.8-20.1); Calc. Creatinine Clearance 110 mL/min (70-130); Calcium 9.4 mg/dL (7.8-10.44); Carbon Dioxide 24 mmol/L (23-31); Chloride 105 mmol/L (98-107); Glucose 117 mg/dL (83-110); Potassium 3.8 mmol/L (3.5-5.1); Sodium 139 mmol/L (136-145)
[2025-07-21 06:06] VITALS: BMI 54.5
[2025-07-21] MEDS: Furosemide 20 MG TAB PO SCH (08:24)
[2025-07-21] MEDS: Magnesium 2 GM/50 ML(in water) 2 GM in Premix 1 BAG IVPB SCH (12:47)
[2025-07-21] MEDS: Apixaban 5 MG TAB PO SCH (12:50)
[2025-07-21 15:15] VITALS: BP 125/63; TEMP 97.4
[2025-07-21] MEDS ORDERED: Apixaban 5 MG TAB PO SCH (21:00)
[2025-07-22] MEDS ORDERED: Furosemide 20 MG TAB PO SCH (09:00)
== END 2025-07-21 16:10 | disposition home health service (06) | DRG 291 ==
LOC: ERS 22:19 → 2NO 07-15 03:08 → OBSVTOIN 07-15 04:36 → 2NO 07-16 11:18
PROVIDERS: ADMIT Internal Medicine; ATTEND Internal Medicine
DX: I13.0 Hypertensive heart and chronic kidney disease with heart failure and stage 1 through stage 4 chronic kidney disease, or unspecified chronic kidney disease (principal); I50.33 Acute on chronic diastolic (congestive) heart failure; J96.01 Acute respiratory failure with hypoxia; I48.11 Longstanding persistent atrial fibrillation; E87.3 Alkalosis; Z68.43 Body mass index [BMI] 50.0-59.9, adult; N17.9 Acute kidney failure, unspecified; Z66 Do not resuscitate; E11.22 Type 2 diabetes mellitus with diabetic chronic kidney disease; E87.6 Hypokalemia; K21.9 Gastro-esophageal reflux disease without esophagitis; R00.1 Bradycardia, unspecified; I89.0 Lymphedema, not elsewhere classified; E66.01 Morbid (severe) obesity due to excess calories; D50.9 Iron deficiency anemia, unspecified; E78.5 Hyperlipidemia, unspecified; N18.9 Chronic kidney disease, unspecified; D63.1 Anemia in chronic kidney disease; I87.2 Venous insufficiency (chronic) (peripheral); Z87.01 Personal history of pneumonia (recurrent); Z98.890 Other specified postprocedural states; Z90.49 Acquired absence of other specified parts of digestive tract; Z88.0 Allergy status to penicillin; Z79.01 Long term (current) use of anticoagulants; Z79.84 Long term (current) use of oral hypoglycemic drugs; Z79.899 Other long term (current) drug therapy; Z88.1 Allergy status to other antibiotic agents; Z88.5 Allergy status to narcotic agent; Z96.653 Presence of artificial knee joint, bilateral; Z96.611 Presence of right artificial shoulder joint; Z96.612 Presence of left artificial shoulder joint
CPT/HCPCS: 36415; 36416; 71045; 80048; 80053; 82728; 83540; 83550; 83735; 83880; 84484; 85025; 87428; 93005; 93010; 93306; 96374; 97139; J1120; J1940; J2916; J3475; J7050